=== PATIENT | male | born 1930 | race Caucasian/White ===

== ENCOUNTER 2016-10-06 16:22 | Inpatient (IN) | payer MEDICARE, BC ==
[~2016-10-06] VITALS: Ht 177.8 cm; Wt 97.5 kg
[2016-10-06] MEDS ORDERED: NITR0.4S14 SL (16:36)
[2016-10-06] MEDS ORDERED: PANT40TA2 PO (16:36)
[2016-10-06] MEDS ORDERED: SERT-155 PO (16:36)
[2016-10-06] MEDS ORDERED: ATOR40TA75 PO (16:36)
[2016-10-06] MEDS ORDERED: IRBE150T12 PO (16:36)
[2016-10-06] MEDS ORDERED: MORPHINE 4 MG/ML 1ML SYRINGE IV ONE (17:45)
--- NOTE | 2016-10-06 17:48 | REP ---
PELVIS AND LEFT HIP: AP view of the pelvis and two views of the left hip are performed. There is a left femoral neck fracture with some foreshortening. No other fracture or dislocation is seen. IMPRESSION: Left femoral neck fracture. Signed by Meng Pereyra MD 10/07/2016 10:50 A
[2016-10-06 17:49] LABS: BASO # 0.1 K/mm3 (0.0-0.2); EOS # 0.3 K/mm3 (0.0-0.50); EOS % 2.7 % (0.0-3.0); LARGE UNSTAINED CELL # 0.2 K/mm3 (0.0-0.4); LARGE UNSTAINED CELL % 1.7 % (0.0-4.0); LYMPH # 2.1 K/mm3 (1.5-4.5); LYMPH % 20.3 % (24.0-44.0); MEAN CORPUSCULAR HEMOGLOBIN 32.8 pg (27.0-33.0); MEAN CORPUSCULAR HGB CONC 34.4 g/dl (32.0-36.5); MEAN CORPUSCULAR VOLUME 95.3 fl (80.0-96.0); MONO # 0.6 K/mm3 (0.0-0.8); MONO % 6.2 % (0.0-5.0); NEUTROPHILS # 6.6 K/mm3 (1.8-7.7); NEUTROPHILS % 68.1 % (36.0-66.0); PLATELET COUNT, AUTOMATED 226 k/mm3 (150-450); RED CELL DISTRIBUTION WIDTH 12.8 % (11.5-14.5); WHITE BLOOD COUNT 9.7 K/mm3 (4.0-10.0)
--- NOTE | 2016-10-06 17:49 | REP ---
LEFT FEMUR: AP and lateral views of the left femur are performed. There is a left femoral neck fracture. Total knee prosthesis is seen. No other fracture or dislocation is seen. IMPRESSION: Left femoral neck fracture. Signed by Meng Pereyra MD 10/07/2016 10:50 A
--- NOTE | 2016-10-06 17:50 | REP ---
CHEST: AP, supine, and frontal view of the chest was performed and compared to prior study of 11/25/2010. There is no acute infiltrate. Mild left basilar fibro atelectasis is seen. The heart is not significantly enlarged. There is calcification of the thoracic aorta. There are degenerative changes of the spine. IMPRESSION: No acute infiltrate. Signed by Meng Pereyra MD 10/07/2016 10:50 A
[2016-10-06 18:00] LABS: INR 1.07
[2016-10-06] MEDS ORDERED: CO Q100C PO (18:06)
[2016-10-06] MEDS ORDERED: GLUCTAB6 PO (18:06)
[2016-10-06] MEDS ORDERED: ASPI1TAB PO (18:06)
[2016-10-06] MEDS ORDERED: OCUVTAB PO (18:06)
[2016-10-06 18:07] LABS: ANION GAP 7 MEQ/L (8-16); BLOOD UREA NITROGEN 21 MG/DL (7-18); CALCIUM LEVEL 9.3 MG/DL (8.8-10.2); CARBON DIOXIDE LEVEL 25 MEQ/L (21-32); CHLORIDE LEVEL 106 MEQ/L (98-107); CREATININE FOR GFR 0.96 MG/DL (0.70-1.30); GLOMERULAR FILTRATION RATE > 60.0 (>35); GLUCOSE, FASTING 95 MG/DL (83-110); POTASSIUM SERUM 4.2 MEQ/L (3.5-5.1); SODIUM LEVEL 138 MEQ/L (136-145)
[2016-10-06] MEDS: NS 1,000 ML IV SCH ×2 (18:11→22:22)
[2016-10-06] MEDS ORDERED: NITROGLYCERIN 0.4 MG SUBL TABLET SL PRN (19:00)
[2016-10-06] MEDS ORDERED: PLAV1TAB2 PO (19:02)
[2016-10-06] MEDS ORDERED: MORPHINE 2 MG/ML 1ML SYRINGE IV PRN ×2 (19:30)
[2016-10-06] MEDS ORDERED: PERCOCET 5MG/325MG TAB PO PRN (19:30)
[2016-10-06] MEDS ORDERED: MORPHINE 4 MG/ML 1ML SYRINGE IV PRN (20:00)
[2016-10-06] MEDS ORDERED: ONDANSETRON 4MG/2ML VIAL (J2405) IV ONE (20:00)
[2016-10-06 20:40] VITALS: BP 124/60
[2016-10-06] MEDS ORDERED: ATORVASTATIN 20 MG TAB PO SCH (21:00)
--- NOTE | 2016-10-06 21:20 | HPE ---
DATE OF ADMISSION: 10/06/2016 PRIMARY CARE PHYSICIAN: Dr. Rosales CLAIM BENEFIT SPECIALIST: Dr. Cunningham CHIEF COMPLAINT: Fall. HISTORY OF PRESENT ILLNESS: The patient is a 86-year-old man who has been in the usual state of his health. He has a history of frequent falls. He reportedly was leaving a diner, where he was eating with son, where he had a witnessed fall. Patient denies any prodromal symptoms. No chest pain, shortness of breath, lightheadedness, dizziness, nausea, vomiting. He has not been sick at all recently. He states that he misstepped while stepping down from the curb. He attempted to break his fall by grabbing into the front of a car but instead landed on his left side. His son, who witnessed fall, was immediately next to him. The patient did not lose consciousness; however, he could not bear weight on his left secondary to significant pain. The patient otherwise has a 14 pack-year tobacco history. He has known coronary disease and has had three separate heart attacks with stents placed in the past, hypertension, dyslipidemia. He normally works out at [employer] for 20 minutes every morning without any symptoms of chest pressure or shortness of breath. He tells me that he recently had a stress test from Dr. Cunningham 6 months ago and was told everything was fine and that he did not need to be seen for another time. At the present time the patient complains of pain in his left hip but otherwise is in no distress and otherwise complains of no other issues. PAST MEDICAL HISTORY: 1. Coronary artery disease. 2. Hypertension. 3. Dyslipidemia. 4. Gastroesophageal reflux disease. 5. Anxiety and depression. HOME MEDICATIONS: - aspirin 81 mg daily - atorvastatin 40 mg at bedtime - irbesartan 150 mg daily - multivitamin one tablet daily - nitroglycerine 0.4 mg sublingually every 5 minutes as needed for chest pain - pantoprazole 40 mg daily - sertraline 50 mg daily ALLERGIES: ATORVASTATIN, BETA ANTOINE, NAPROXEN. SOCIAL HISTORY: A 14 pack-year history in the distant past. No alcohol. He is and lives alone. Has a very involved daughter who accompanied him to appointments, and his son as well, who are both present at the bedside in the emergency room. He is full code. PAST SURGICAL HISTORY: 1. Coronary stent placement times three. 2. Bilateral inguinal hernia repair. 3. Colonoscopies. FAMILY HISTORY: Noncontributory. REVIEW OF SYSTEMS: Negative other than history of present illness (HPI). PHYSICAL EXAMINATION: Temperature 96, pulse 65, respiratory rate 20, blood pressure (BP) 167/73, oxygen saturation 95% on room air. GENERAL: He is a very pleasant, elderly man lying flat in bed. He does not appear to be in any acute distress. HEENT: Cranial nerves II-XII are grossly intact. He is wearing bifocal lenses. He has moist mucous membranes. No elevation in central venous pressure (CVP). CARDIOVASCULAR: S1, S2, regular. RESPIRATORY: Clear. ABDOMEN: Obese. Bowel sounds present. The abdomen is soft. EXTREMITIES: No clubbing, cyanosis, or edema. Decreased range of motion of the left lower extremity secondary to pain. LABORATORY STUDIES: WBC 9.7, hemoglobin 14.8 platelet count 226. Chemistry panel: Sodium 138, potassium 4.2, chloride 106, bicarbonate 25, BUN 21 , creatinine 0.9. INR 1.0. IMAGING: The patient did have a hip and pelvis x-ray, which revealed left femoral neck fracture. He had a femur x-ray that revealed left femoral neck fracture. He had a chest x-ray which revealed no acute infiltrate. ASSESSMENT AND PLAN: This is an 86-year-old man status post mechanical fall with left femoral neck fracture. 1. Left femoral neck fracture. of orthopedic surgery has been contacted by the emergency room (ER). I have also called and left him a message as well and placed a consult in the computer. I hope to hear back from him in the near future. In meantime, the patient will be kept nothing by mouth with pain medication, place a Woods catheter. Will hold his aspirin. Hold off on deep vein thrombosis (DVT) prophylaxis until a decision is made about his operative repair. EKG has been completed. It reveals right bundle branch block. Unfortunately, I do not have any old to compare it to; however, given his cardiac history, this is not surprising. Given his cardiac history, advanced, hypertension, dyslipidemia, he is really at moderate risk for perioperative complications; however, he has metabolic equivalents (METS) greater than 4 easily and is okay to proceed to operative repair without any further testing. 2. Dyslipidemia. Continue with statin. 3. Coronary artery disease. We are holding his aspirin. Continue with statin. He adverse reaction to beta antoine. 4. Gastroesophageal reflux disease. Continue with Protonix. 5. Anxiety and depression. Continue with sertraline. 6. Hypertension. Continue with Cozaar. DISPOSITION: The patient is admitted to the medical/surgical floor with plan for operative repair, following which he would likely benefit from physical therapy (PT). Orthopedic surgery's help is greatly appreciated. CHERYL
--- NOTE | 2016-10-06 22:06 | ECGEPIP ---
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
[2016-10-06] MEDS: PERCOCET 5MG/325MG TAB PO PRN (22:22)
--- NOTE | 2016-10-06 22:44 | CR ---
DATE OF CONSULTATION: 10/06/2016 CHIEF COMPLAINT: Left hip pain and deformity. HISTORY OF PRESENT ILLNESS: The patient was walking this afternoon with his son and fell onto his left side injuring his left hip, presented promptly to the emergency room complaining of pain isolated to the left hip joint. No loss of consciousness. No other complaints. He states that he has recently had more trouble with dizziness and feels this contributed to his fall. PAST MEDICAL HISTORY: Significant for a significant coronary artery disease with myocardial infarction and multiple stents. PAST SURGICAL HISTORY: Left total knee arthroplasty, cataracts, hernia with mesh repair followed by mesh removal. 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 MEDICATIONS: - He currently takes baby aspirin daily, 81 mg daily. - Lipitor 40 mg - irbesartan 150 mg - pantoprazole 40 mg - sertraline 50 mg - CoQ-10 100 two tablets daily - Nitrostat 0.4 mg sublingual as needed for chest pain - PreserVision 4 tablets total daily - multivitamin fiber supplement - glucosamine chondroitin ALLERGIES: The patient is currently denying any drug allergies, but per the medical record, does have documented history of allergy to BETA BLOCKERS and NAPROXEN and ATORVASTATIN. SOCIAL HISTORY: He is a former smoker, otherwise negative. REVIEW OF SYSTEMS: As above for the dizziness, otherwise no chest pain, shortness of breath. No fever, chills, nausea, or vomiting. No diarrhea or constipation. PHYSICAL EXAMINATION: Awake, alert and oriented times three. A well-appearing male. No acute distress. HEAD: Normocephalic, atraumatic. Extraocular muscles are intact. CARDIOVASCULAR: Regular rate and rhythm. PULMONARY: No increased work of breathing. ABDOMEN: Soft, nontender, nondistended. FOCUSED EXAMINATION OF THE LEFT LOWER EXTREMITY: There is swelling and low grade deformity about the left hip joint. The skin is intact. There is some small possibly well-healed scars consistent with the left previous left hip surgery versus normal variant. I do not see any large surgical scars in the left hip joint area. Distally, he has 2+ dorsalis pedis and posterior tibialis pulses. The toes are pink, warm and well-perfused with sensation intact to light touch. Intact tibialis anterior, extensor and flexor hallucis longus, and the left knee , leg and foot is grossly atraumatic with a normal appearance. The right lower extremity is grossly atraumatic, neurovascularly intact and normal in appearance. He is comfortably moving the bilateral upper extremities and the cervical spine with a full pain-free range of motion. X-rays of the chest show no acute fracture. Left femur x-ray show in part the previous total knee arthroplasty on the left and the left hip x-rays show a femoral neck fracture displaced into varus. 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 ASSESSMENT: A left femoral neck fracture. PLAN: The patient is to be admitted in preoperatively cleared by the hospitalist service. He did just have some coffee shortly before his fall and so the plan will be to schedule him for surgery tomorrow most likely which will be some sort of arthroplasty of his left hip. I will discuss this with the oncoming orthopedic team. I did discuss the risks and benefits of all treatment options with the patient and his family present and ultimately he did sign the surgical consent in my presence for the left hip arthroplasty. All of his questions were answered and he is satisfied with the treatment plan at this time. Edited: tereza 10/14/2016 1603 MTDD
[2016-10-07] MEDS: PERCOCET 5MG/325MG TAB PO PRN ×2 (03:03→09:53)
[2016-10-07 06:00] VITALS: BP 144/80
[2016-10-07 08:08] LABS: MEAN CORPUSCULAR HGB CONC 34.5 g/dl (32.0-36.5); MEAN CORPUSCULAR VOLUME 95.6 fl (80.0-96.0); RED CELL DISTRIBUTION WIDTH 12.7 % (11.5-14.5); WHITE BLOOD COUNT 8.8 K/mm3 (4.0-10.0)
[2016-10-07 08:46] LABS: ANION GAP 7 MEQ/L (8-16); BLOOD UREA NITROGEN 18 MG/DL (7-18); CALCIUM LEVEL 8.3 MG/DL (8.8-10.2); CARBON DIOXIDE LEVEL 21 MEQ/L (21-32); CHLORIDE LEVEL 110 MEQ/L (98-107); CREATININE FOR GFR 0.75 MG/DL (0.70-1.30); GLOMERULAR FILTRATION RATE > 60.0 (>35); GLUCOSE, FASTING 89 MG/DL (83-110); POTASSIUM SERUM 3.8 MEQ/L (3.5-5.1); SODIUM LEVEL 138 MEQ/L (136-145)
[2016-10-07] MEDS ORDERED: PANTOPRAZOLE 40MG TAB (PROTONIX) PO SCH (09:00)
[2016-10-07] MEDS ORDERED: OCUVITE 1 TAB PO SCH (09:00)
[2016-10-07] MEDS ORDERED: SERTRALINE HCL 50 MG TAB PO SCH (09:00)
[2016-10-07] MEDS ORDERED: IRBESARTAN 150 MG TAB PO SCH (09:00)
[2016-10-07] MEDS: NS 1,000 ML IV SCH ×2 (11:13→13:42)
[2016-10-07] MEDS ORDERED: ceFAZolin 1GM INJ (J0690) As Ordered ONE (13:18)
[2016-10-07] MEDS ORDERED: EPINEPHrine INJ 1 MG/ML 1ML AMP As Ordered ONE ×2 (13:56→14:07)
[2016-10-07] MEDS ORDERED: fentaNYL 100 MCG/2 ML INJECTION (J3010) As Ordered ONE (14:28)
[2016-10-07] MEDS ORDERED: KETAMINE HCL 200 MG/20 ML VIAL As Ordered ONE (14:44)
--- NOTE | 2016-10-07 14:51 | IPN ---
DATE: 10/07/2016 The patient is seen and examined. He has the left femoral neck fracture that is displaced. He fell yesterday and sustained a left hip fracture. No other injury noted. The patient is seen and examined and wishes to go ahead with a left hip hemiarthroplasty to try to get him back ambulating, etc. He has family understand the nature of this, the risks of bleeding, infection, damage to nerves, vessels, persistent pain, wear loosening, dislocation, leg length inequality, blood clots, medical problems, among others. Plan on proceeding with a left hip hemiarthroplasty.
--- NOTE | 2016-10-07 15:17 | IPNPDOC ---
Subjective Date Seen The patient was seen on 10/07/16. Subjective Chief Complaint/HPI The patient is a 86-year-old male admitted with a reason for visit of Hip Fx. General: Denies: Chills, Night Sweats Constitutional: Denies: Chills, Fever Eyes: Denies: Pain, Vision change ENT: Denies: Head Aches, Ear Pain Skin: Denies: Rash, Lesions Pulmonary: Denies: Dyspnea, Cough Cardiovascular: Denies: Chest Pain, Palpitations Gastrointestinal: Denies: Nausea, Vomiting, Abdominal Pain Genitourinary: Denies: Dysuria, Frequency Hematologic: Denies: Bruising, Bleeding Excessively Musculoskeletal: Reports: Other Symptoms (Left Hip Pain) Objective Physical Examination General Exam: Positive: Alert, Cooperative, Mild Distress (2/2 Left Hip Pain) ENT Exam: Positive: Atraumatic, Mucous membr. moist/pink Neck Exam: Negative: JVD Chest Exam: Positive: Clear to auscultation, Normal air movement Heart Exam: Positive: Rate Normal, Normal S1, Normal S2 Abdomen Exam: Positive: Soft, Negative: Tenderness Extremity Exam: Positive: Other (Left Hip ROM limited 2/2 recent fracture. ) Assessment /Plan Plan/VTE VTE Prophylaxis Ordered?: Yes Plan/Urinary Catheter Reason for insertion/continuin: Perioperative Plan Left femoral neck fracture Patient scheduled for Arthroplasty this afternoon with Ortho Sx Pain Mgmt and DVT prophylaxis as per primary team Coronary artery disease. Continue with statin. ASA on hold 2/2 above Not on BB due to allergy Hypertension Continue with Irbesartan Dyslipidemia Continue statin. Gastroesophageal reflux disease Continue with Protonix. Anxiety and depression Continue with sertraline. DVT Prophylaxis as per primary team VS, I&O, 24H, Rodrigo Vital Signs/I&O Vital Signs Date Time Temp Pulse Resp B/P (MAP) Pulse Ox O2 Delivery O2 Flow Rate FiO2 10/07/16 10:23 16 10/07/16 09:53 Room Air 10/07/16 09:24 146/70 10/07/16 06:00 98.4 66 94 2.0 I&O- Last 24 Hours up to 6 AM 10/07/16 05:59 Intake Total 0 ml Output Total 2400 ml Balance -2400 ml Laboratory Data 24H LABS Laboratory Tests 2 10/06/16 17:29: Prothrombin Time 14.1, Prothromb Time International Ratio 1.07, Activated Partial Thromboplast Time 30.9, Anion Gap 7L, Glomerular Filtration Rate > 60.0 , Blood Urea Nitrogen 21H, Creatinine 0.96, Sodium Level 138, Potassium Level 4.2, Chloride Level 106, Carbon Dioxide Level 25, Calcium Level 9.3 10/06/16 17:30: White Blood Count 9.7, Red Blood Count 4.53, Hemoglobin 14.8, Hematocrit 43.1, Mean Corpuscular Volume 95.3, Mean Corpuscular Hemoglobin 32.8, Mean Corpuscular Hemoglobin Concent 34.4, Red Cell Distribution Width 12.8, Platelet Count 226, Neutrophils (%) (Auto) 68.1H, Lymphocytes (%) (Auto) 20.3L, Monocytes (%) (Auto) 6.2H, Eosinophils (%) (Auto) 2.7, Basophils (%) (Auto) 1.0 , Neutrophils # (Auto) 6.6, Lymphocytes # (Auto) 2.1, Monocytes # (Auto) 0.6, Eosinophils # (Auto) 0.3, Basophils # (Auto) 0.1, Large Unclassified Cells % 1.7 , Large Unclassified Cells # 0.2 10/07/16 07:41: Anion Gap 7L, Glomerular Filtration Rate > 60.0, Blood Urea Nitrogen 18, Creatinine 0.75, Sodium Level 138, Potassium Level 3.8, Chloride Level 110H, Carbon Dioxide Level 21, Calcium Level 8.3L CBC/BMP Laboratory Tests 10/06/16 17:29 Calcium Level 9.3 10/06/16 17:30 Red Blood Count 4.53, Mean Corpuscular Volume 95.3, Mean Corpuscular Hemoglobin 32.8, Mean Corpuscular Hemoglobin Concent 34.4, Red Cell Distribution Width 12.8 , Neutrophils (%) (Auto) 68.1 H, Lymphocytes (%) (Auto) 20.3 L, Monocytes (%) ( Auto) 6.2 H, Eosinophils (%) (Auto) 2.7, Basophils (%) (Auto) 1.0, Neutrophils # (Auto) 6.6, Lymphocytes # (Auto) 2.1, Monocytes # (Auto) 0.6, Eosinophils # ( Auto) 0.3, Basophils # (Auto) 0.1 10/07/16 07:41 Calcium Level 8.3 L, Red Blood Count 4.30, Mean Corpuscular Volume 95.6, Mean Corpuscular Hemoglobin 33.0, Mean Corpuscular Hemoglobin Concent 34.5, Red Cell Distribution Width 12.7 MITESH SWIFT MD Oct 07, 2016 15:17
[2016-10-07] MEDS ORDERED: LIDOCAINE 2% INJ 100 MG/5 ML SDV (FOR ANES.) As Ordered ONE (15:28)
[2016-10-07] MEDS ORDERED: PROPOFOL 200 MG/20 ML VIAL As Ordered ONE (15:28)
[2016-10-07] MEDS ORDERED: LABETALOL HCL 100 MG/20 ML VIAL As Ordered ONE (16:39)
[2016-10-07] MEDS ORDERED: WARFARIN SOD 5 MG TAB PO SCH (17:00)
[2016-10-07] MEDS ORDERED: ONDANSETRON 4MG/2ML VIAL (J2405) As Ordered ONE (17:03)
[2016-10-07] MEDS ORDERED: METOCLOPRAMIDE INJ 10MG/2ML VIAL (J2765) As Ordered ONE (17:24)
[2016-10-07] MEDS ORDERED: LR 1,000 ML IV SCH ×2 (17:30→17:45)
[2016-10-07] MEDS ORDERED: HYDROmorphone HCL 1 MG/ML SYRINGE (J1170) IV PRN (17:30)
[2016-10-07] MEDS ORDERED: ONDANSETRON 4MG/2ML VIAL (J2405) IV PRN ×2 (17:30→17:45)
[2016-10-07] MEDS ORDERED: fentaNYL 100 MCG/2 ML INJECTION (J3010) IV PRN (17:30)
[2016-10-07] MEDS ORDERED: PERCOCET 5MG/325MG TAB PO PRN (17:30)
[2016-10-07] MEDS ORDERED: METOCLOPRAMIDE INJ 10MG/2ML VIAL (J2765) IV PRN (17:30)
[2016-10-07] MEDS ORDERED: MORPHINE 2 MG/ML 1ML SYRINGE IV PRN (17:45)
[2016-10-07] MEDS ORDERED: FLEET ENEMA PR PRN (17:45)
[2016-10-07] MEDS ORDERED: HALOPERIDOL 5 MG/ML VIAL (J1630) IV PRN (17:45)
[2016-10-07] MEDS ORDERED: MORPHINE 4 MG/ML 1ML SYRINGE IV PRN (17:45)
[2016-10-07] MEDS ORDERED: NORCO, ANEXSIA 5/325MG TABLET (HYDROcodone/ACETAMINOPHEN) PO SCH (18:00)
[2016-10-07 18:31] VITALS: BP 160/80
[2016-10-07 19:00] VITALS: BP 170/82
[2016-10-07 20:00] VITALS: BP 158/84
[2016-10-07] MEDS: ATORVASTATIN 20 MG TAB PO SCH (20:48)
[2016-10-07 21:00] VITALS: BP 162/86
[2016-10-07 22:00] VITALS: BP 172/88
[2016-10-07] MEDS: NORCO, ANEXSIA 5/325MG TABLET (HYDROcodone/ACETAMINOPHEN) PO PRN (22:16)
[2016-10-08 02:00] VITALS: BP 125/77
[2016-10-08] MEDS: ACETAMINOPHEN TAB 650MG DOSE (2X325MG) PO PRN (02:13)
[2016-10-08] MEDS: NORCO, ANEXSIA 5/325MG TABLET (HYDROcodone/ACETAMINOPHEN) PO PRN ×2 (04:36→15:52)
[2016-10-08 06:00] VITALS: BP 138/80
[2016-10-08] MEDS ORDERED: NORCO, ANEXSIA 5/325MG TABLET (HYDROcodone/ACETAMINOPHEN) PO PRN (07:00)
[2016-10-08 07:13] LABS: MEAN CORPUSCULAR HEMOGLOBIN 33.2 pg (27.0-33.0); MEAN CORPUSCULAR HGB CONC 34.8 g/dl (32.0-36.5); MEAN CORPUSCULAR VOLUME 95.3 fl (80.0-96.0); RED CELL DISTRIBUTION WIDTH 12.7 % (11.5-14.5); WHITE BLOOD COUNT 9.9 K/mm3 (4.0-10.0)
[2016-10-08 07:18] LABS: INR 1.4
[2016-10-08 07:29] LABS: ANION GAP 8 MEQ/L (8-16); BLOOD UREA NITROGEN 19 MG/DL (7-18); CALCIUM LEVEL 8.1 MG/DL (8.8-10.2); CARBON DIOXIDE LEVEL 23 MEQ/L (21-32); CHLORIDE LEVEL 105 MEQ/L (98-107); CREATININE FOR GFR 0.78 MG/DL (0.70-1.30); GLOMERULAR FILTRATION RATE > 60.0 (>35); GLUCOSE, FASTING 144 MG/DL (83-110); POTASSIUM SERUM 3.7 MEQ/L (3.5-5.1); SODIUM LEVEL 136 MEQ/L (136-145)
[2016-10-08] MEDS: MOM 30ML SUSPENSION UDC PO SCH (08:36)
[2016-10-08] MEDS: MIRALAX *UNIT DOSE* 17GM PACKET PO SCH (08:36)
[2016-10-08] MEDS: OCUVITE 1 TAB PO SCH (08:37)
[2016-10-08] MEDS: SERTRALINE HCL 50 MG TAB PO SCH (08:38)
[2016-10-08] MEDS: SENOKOT S TAB PO SCH ×2 (08:38→20:53)
[2016-10-08] MEDS: PANTOPRAZOLE 40MG TAB (PROTONIX) PO SCH (08:38)
[2016-10-08] MEDS: IRBESARTAN 150 MG TAB PO SCH (08:38)
[2016-10-08] MEDS ORDERED: NITROGLYCERIN 0.4 MG SUBL TABLET SL PRN (09:00)
[2016-10-08] MEDS ORDERED: MAALOX 30 ML SUSP *UDC PO PRN (09:00)
[2016-10-08] MEDS ORDERED: SIMETHICONE 80 MG CHEW TAB PO PRN (11:15)
--- NOTE | 2016-10-08 11:35 | IPNPDOC ---
Subjective Date Seen The patient was seen on 10/08/16. Subjective Chief Complaint/HPI Patient seen and examined at the bedside. States that he is feeling well this morning, and that his pain is controlled following surgery yesterday. Objective Physical Examination General Exam: Positive: Alert, Cooperative, No Acute Distress ENT Exam: Positive: Atraumatic, Mucous membr. moist/pink Neck Exam: Negative: JVD Chest Exam: Positive: Clear to auscultation, Normal air movement Heart Exam: Positive: Rate Normal, Normal S1, Normal S2 Abdomen Exam: Positive: Soft, Negative: Tenderness Extremity Exam: Positive: Other (Left Hip noted to be wrapped in surgical dressing, ROM of the joint limited 2/2 recent fracture. Neurovascularly intact distally.) Assessment /Plan Plan/VTE VTE Prophylaxis Ordered?: Yes Plan/Urinary Catheter Reason for insertion/continuin: Perioperative Plan Left femoral neck fracture s/p Hemiarthroplasty on 10/07 Pain Mgmt and DVT prophylaxis as per primary team Coronary artery disease. Continue with statin. ASA on hold 2/2 above Not on BB due to allergy Hypertension Continue with Irbesartan Dyslipidemia Continue statin. Gastroesophageal reflux disease Continue with Protonix. Anxiety and depression Continue with sertraline. Urinary Retention Patient on Flomax DVT Prophylaxis as per primary team VS, I&O, 24H, Fishbone Vital Signs/I&O Vital Signs Date Time Temp Pulse Resp B/P (MAP) Pulse Ox O2 Delivery O2 Flow Rate FiO2 10/08/16 09:10 18 10/08/16 08:38 138/80 10/08/16 06:24 Room Air 10/08/16 06:00 99.4 79 95 2.0 I&O- Last 24 Hours up to 6 AM 10/08/16 06:00 Intake Total 1280 ml Output Total 1750 ml Balance -470 ml Laboratory Data 24H LABS Laboratory Tests 2 10/08/16 06:54: Prothrombin Time 17.5H, Prothromb Time International Ratio 1.40, Anion Gap 8, Glomerular Filtration Rate > 60.0, Blood Urea Nitrogen 19H, Creatinine 0.78, Sodium Level 136, Potassium Level 3.7, Chloride Level 105, Carbon Dioxide Level 23, Calcium Level 8.1L CBC/BMP Laboratory Tests 10/08/16 06:54 Red Blood Count 3.82 L, Mean Corpuscular Volume 95.3, Mean Corpuscular Hemoglobin 33.2 H, Mean Corpuscular Hemoglobin Concent 34.8, Red Cell Distribution Width 12.7, Calcium Level 8.1 L MITESH SWIFT MD Oct 08, 2016 11:35
--- NOTE | 2016-10-08 13:53 | RO ---
DATE OF PROCEDURE: 10/07/2016 PREOPERATIVE DIAGNOSIS: Left hip femoral neck fracture. POSTOPERATIVE DIAGNOSIS: Left hip femoral neck fracture. PROCEDURE: Left hip hemiarthroplasty using a 51 ball, +5 neck and a size 3 cemented Shannon stem. SURGEON: Dr. Amauri Grullon GIFT WRAPPER: Mook Fernandez MD ANESTHESIA: Spinal. ESTIMATED BLOOD LOSS: 200. COMPLICATIONS: None. INDICATIONS: This is an 86-year-old gentleman who fell yesterday injuring his left hip. He had a displaced femoral neck fracture that we felt was appropriate for hemiarthroplasty. He and his family wished to go ahead with this and understood the nature of this and the risks of bleeding, infection, damage to nerves, vessels, persistent pain, wear, loosening, dislocation, leg length inequality, blood clots, medical problems, , among others. PROCEDURE: The patient was taken to the operating room and placed in the right lateral decubitus position after the spinal anesthesia was induced. The left hip was prepped and draped in the usual sterile fashion. A time-out was performed. We then created a longitudinal incision over the lateral aspect of the hip. Sharp dissection was carried down through the subcutaneous tissue until the fascia kevin was encountered. This was incised longitudinally with the cautery. We then exposed the abductors and divided the anterior 40% of the abductor off of the femur as we gradually externally rotated the femur. We dissected down along the femoral neck and released the labrum. As we carefully dissected around the neck down to the lesser trochanter, we gradually externally rotated the femur. Then used the canal initiating reamer to initiate the hole in the proximal femur, followed by the canal finding reamer and the lateralizing reamer. Then used a trial broach to make a neck cut and used the trial broach as a template. This was done about a half a fingerbreadth up from lesser trochanter. The femoral head was then removed with a corkscrew and measured to be a 51. We then began broaching and started with a size 2. We were able to get up to a size 3, which had an excellent fit and fill without impacting it very hard to avoid the risk of fracture. Once the broach was in place, we then we did some trial reductions with a -3, the 0, and the +5 neck and the 51 ball and were very pleased with the soft tissue tension and stability of the +5 ball. We put the hip in full extension. There was minimal shuck. It was very stable in extension and external rotation and flexion and internal rotation. Soft tissue tension was appropriate. We then removed the trial components and took the actual implants on the field. We prepared the canal. We placed the cement restrictor size 3 down the canal at an appropriate distance so it would be just beyond the stem. We put the size 3 stem on with the cementralizer on the field and the 51, +5 neck. The canal was then irrigated and brushed. An epinephrine soaked vaginal pack was placed followed by dry sponges. An press assistant prepared the bone cement in the modern technique on the back table. Once the canal was dry, we retrograde filled the canal with cement and placed the stem down and placed it in the anteversion that matched the actual femur. Care was taken not to place it in varus. Once the cement had hardened, we then impacted on the head and neck. Excellent solid fit was noted. Then we reduced the hip and put the hip through a range of motion. Again, very pleased with stability of the hip. Soft tissue tension was appropriate. Copious irrigation had been performed multiple times. We made sure there was nothing in the acetabulum prior to reduction and then we repaired the minimus with #1 Vicryl suture, the abductor with #1 Vicryl suture. Soft tissue planes were relatively indistinct and somewhat fatty, but we got a good closure. We then repaired the fascia kevin with #1 Vicryl suture and then interrupted Stratafix running suture in each direction that the press assistant and I placed. Again irrigated and closed the subcutaneous with #2-0 Vicryl and the skin with fannie. Sterile dressing was applied. The patient was taken to recovery in stable condition. There were no known complications. The plan will be routine postop. This procedure was done as a team and both of us participated throughout the procedure and exposure, preparing the canal, and trial reductions, etc., so both surgeons were instrumental in the completion of the surgery. We also both assisted in wound closure and in decision making as far as the prosthetic components.
[2016-10-08 14:00] VITALS: BP 122/58
[2016-10-08] MEDS ORDERED: WARFARIN SOD 5 MG TAB PO ONE (17:00)
[2016-10-08] MEDS: TAMSULOSIN 0.4 MG CAP PO SCH (20:53)
[2016-10-08] MEDS: ATORVASTATIN 20 MG TAB PO SCH (20:53)
[2016-10-08] MEDS: traMADol 50 MG TAB PO PRN (20:54)
[2016-10-08 22:00] VITALS: BP 144/76
[2016-10-09] MEDS: traMADol 50 MG TAB PO PRN (04:59)
[2016-10-09 05:36] LABS: MEAN CORPUSCULAR HEMOGLOBIN 33.3 pg (27.0-33.0); MEAN CORPUSCULAR VOLUME 95.4 fl (80.0-96.0); RED CELL DISTRIBUTION WIDTH 12.9 % (11.5-14.5); WHITE BLOOD COUNT 9.8 K/mm3 (4.0-10.0)
[2016-10-09 05:41] LABS: INR 2.48
[2016-10-09 05:46] LABS: ANION GAP 7 MEQ/L (8-16); BLOOD UREA NITROGEN 18 MG/DL (7-18); CALCIUM LEVEL 8.5 MG/DL (8.8-10.2); CARBON DIOXIDE LEVEL 25 MEQ/L (21-32); CHLORIDE LEVEL 104 MEQ/L (98-107); CREATININE FOR GFR 0.73 MG/DL (0.70-1.30); GLOMERULAR FILTRATION RATE > 60.0 (>35); GLUCOSE, FASTING 126 MG/DL (83-110); POTASSIUM SERUM 3.6 MEQ/L (3.5-5.1); SODIUM LEVEL 136 MEQ/L (136-145)
[2016-10-09 06:00] VITALS: BP 132/68
[2016-10-09] MEDS: SENOKOT S TAB PO SCH ×2 (08:50→20:31)
[2016-10-09] MEDS: MOM 30ML SUSPENSION UDC PO SCH (08:50)
[2016-10-09] MEDS: MIRALAX *UNIT DOSE* 17GM PACKET PO SCH (08:50)
[2016-10-09] MEDS: OCUVITE 1 TAB PO SCH (08:50)
[2016-10-09] MEDS: SERTRALINE HCL 50 MG TAB PO SCH (08:50)
[2016-10-09] MEDS: IRBESARTAN 150 MG TAB PO SCH (08:50)
[2016-10-09] MEDS: ACETAMINOPHEN TAB 650MG DOSE (2X325MG) PO PRN ×3 (08:51→20:31)
[2016-10-09] MEDS: PANTOPRAZOLE 40MG TAB (PROTONIX) PO SCH (08:51)
--- NOTE | 2016-10-09 11:20 | IPNPDOC ---
Subjective Date Seen The patient was seen on 10/09/16. Subjective Chief Complaint/HPI Patient seen and examined at the bedside. He appears somewhat confused but remains pleasant. He states that he is feeling well and notes that his pain is well controlled. Denies any other acute complaints at this time. Objective Physical Examination General Exam: Positive: Alert, Cooperative, No Acute Distress ENT Exam: Positive: Atraumatic, Mucous membr. moist/pink Neck Exam: Negative: JVD Chest Exam: Positive: Clear to auscultation, Normal air movement Heart Exam: Positive: Rate Normal, Normal S1, Normal S2 Abdomen Exam: Positive: Soft, Negative: Tenderness Extremity Exam: Positive: Other (Left Hip noted to be wrapped in surgical dressing, ROM of the joint limited 2/2 recent fracture. Neurovascularly intact distally.) Assessment /Plan Plan/VTE VTE Prophylaxis Ordered?: Yes Plan/Urinary Catheter Reason for insertion/continuin: Perioperative Plan Left femoral neck fracture s/p Hemiarthroplasty on 10/07 Pain Mgmt and DVT prophylaxis as per primary team Coronary artery disease. Continue with statin. ASA on hold 2/2 above Not on BB due to allergy Hypertension Continue with Irbesartan Dyslipidemia Continue statin. Gastroesophageal reflux disease Continue with Protonix. Anxiety and depression Continue with sertraline. Urinary Retention Patient on Flomax DVT Prophylaxis as per primary team VS, I&O, 24H, [facility] Vital Signs/I&O Vital Signs Date Time Temp Pulse Resp B/P (MAP) Pulse Ox O2 Delivery O2 Flow Rate FiO2 10/09/16 08:50 132/68 10/09/16 06:00 98.7 91 18 90 Room Air 10/08/16 06:00 2.0 I&O- Last 24 Hours up to 6 AM 10/09/16 06:00 Intake Total 2060 ml Output Total 400 ml Balance 1660 ml Laboratory Data 24H LABS Laboratory Tests 2 10/09/16 05:18: Prothrombin Time 27.8H, Prothromb Time International Ratio 2.48, Anion Gap 7L, Glomerular Filtration Rate > 60.0, Blood Urea Nitrogen 18, Creatinine 0.73, Sodium Level 136, Potassium Level 3.6, Chloride Level 104, Carbon Dioxide Level 25, Calcium Level 8.5L CBC/BMP Laboratory Tests 10/09/16 05:18 Red Blood Count 3.53 L, Mean Corpuscular Volume 95.4, Mean Corpuscular Hemoglobin 33.3 H, Mean Corpuscular Hemoglobin Concent 35.0, Red Cell Distribution Width 12.9, Calcium Level 8.5 L MITESH SWIFT MD Oct 09, 2016 11:20
[2016-10-09 14:00] VITALS: BP 140/80
[2016-10-09] MEDS: TAMSULOSIN 0.4 MG CAP PO SCH (20:30)
[2016-10-09] MEDS: ATORVASTATIN 20 MG TAB PO SCH (20:31)
[2016-10-09 22:00] VITALS: BP 150/80
[2016-10-10 06:00] VITALS: BP 145/64
[2016-10-10 06:26] LABS: MEAN CORPUSCULAR HEMOGLOBIN 32.9 pg (27.0-33.0); MEAN CORPUSCULAR HGB CONC 34.3 g/dl (32.0-36.5); MEAN CORPUSCULAR VOLUME 95.9 fl (80.0-96.0); RED CELL DISTRIBUTION WIDTH 12.6 % (11.5-14.5); WHITE BLOOD COUNT 10.1 K/mm3 (4.0-10.0)
[2016-10-10 06:33] LABS: INR 2.63
[2016-10-10 06:43] LABS: ANION GAP 8 MEQ/L (8-16); BLOOD UREA NITROGEN 21 MG/DL (7-18); CALCIUM LEVEL 8.1 MG/DL (8.8-10.2); CARBON DIOXIDE LEVEL 26 MEQ/L (21-32); CHLORIDE LEVEL 106 MEQ/L (98-107); CREATININE FOR GFR 0.73 MG/DL (0.70-1.30); GLOMERULAR FILTRATION RATE > 60.0 (>35); GLUCOSE, FASTING 112 MG/DL (83-110); POTASSIUM SERUM 3.6 MEQ/L (3.5-5.1); SODIUM LEVEL 140 MEQ/L (136-145)
[2016-10-10] MEDS: SERTRALINE HCL 50 MG TAB PO SCH (08:49)
[2016-10-10] MEDS: MIRALAX *UNIT DOSE* 17GM PACKET PO SCH ×2 (08:49→09:00)
[2016-10-10] MEDS: MOM 30ML SUSPENSION UDC PO SCH ×2 (08:49→09:00)
[2016-10-10] MEDS: PANTOPRAZOLE 40MG TAB (PROTONIX) PO SCH (08:50)
[2016-10-10] MEDS: OCUVITE 1 TAB PO SCH (08:50)
[2016-10-10] MEDS: SENOKOT S TAB PO SCH ×2 (08:51→20:36)
[2016-10-10] MEDS: IRBESARTAN 150 MG TAB PO SCH (08:51)
[2016-10-10] MEDS: traMADol 50 MG TAB PO PRN (08:51)
--- NOTE | 2016-10-10 11:24 | IPNPDOC ---
Subjective Date Seen The patient was seen on 10/10/16. Subjective Chief Complaint/HPI Patient seen and examined at the bedside. Appears more confused today, nursing staff notes that he was having some hallucinations overnight. Appears in no acute distress. Objective Physical Examination General Exam: Positive: No Acute Distress ENT Exam: Positive: Atraumatic, Mucous membr. moist/pink Neck Exam: Negative: JVD Chest Exam: Positive: Clear to auscultation, Normal air movement Heart Exam: Positive: Rate Normal, Normal S1, Normal S2 Abdomen Exam: Positive: Soft, Negative: Tenderness Extremity Exam: Positive: Other (Left Hip noted to be wrapped in surgical dressing, ROM of the joint limited 2/2 recent fracture. Neurovascularly intact distally.) Assessment /Plan Plan/VTE VTE Prophylaxis Ordered?: Yes Plan/Urinary Catheter Reason for insertion/continuin: Perioperative Plan Left femoral neck fracture s/p Hemiarthroplasty on 10/07 Pain Mgmt and DVT prophylaxis as per Ortho Coronary artery disease. Continue with statin. ASA on hold 2/2 above Not on BB due to allergy Hypertension Continue with Irbesartan Dyslipidemia Continue statin. Gastroesophageal reflux disease Continue with Protonix. Anxiety and depression Continue with sertraline. Urinary Retention Patient on Flomax DVT Prophylaxis as per ortho team VS, [facility] Vital Signs/I&O Vital Signs Date Time Temp Pulse Resp B/P (MAP) Pulse Ox O2 Delivery O2 Flow Rate FiO2 10/10/16 08:51 18 10/10/16 08:51 145/64 10/10/16 06:00 99.1 88 94 Room Air 10/08/16 06:00 2.0 I&O- Last 24 Hours up to 6 AM 10/10/16 06:00 Intake Total 600 ml Output Total 610 ml Balance -10 ml Laboratory Data 24H LABS Laboratory Tests 2 10/10/16 06:14: Prothrombin Time 29.2H, Prothromb Time International Ratio 2.63, Anion Gap 8, Glomerular Filtration Rate > 60.0, Blood Urea Nitrogen 21H, Creatinine 0.73, Sodium Level 140, Potassium Level 3.6, Chloride Level 106, Carbon Dioxide Level 26, Calcium Level 8.1L CBC/BMP Laboratory Tests 10/10/16 06:14 Red Blood Count 3.56 L, Mean Corpuscular Volume 95.9, Mean Corpuscular Hemoglobin 32.9, Mean Corpuscular Hemoglobin Concent 34.3, Red Cell Distribution Width 12.6, Calcium Level 8.1 L MITESH SWIFT MD Oct 10, 2016 11:24
[2016-10-10 14:00] VITALS: BP 120/79
[2016-10-10] MEDS: TAMSULOSIN 0.4 MG CAP PO SCH (20:36)
[2016-10-10] MEDS: ATORVASTATIN 20 MG TAB PO SCH (20:36)
[2016-10-10 22:00] VITALS: BP 154/72
[2016-10-11] MEDS: ACETAMINOPHEN TAB 650MG DOSE (2X325MG) PO PRN ×3 (01:25→12:41)
[2016-10-11 06:00] VITALS: BP 145/88
[2016-10-11 06:36] LABS: MEAN CORPUSCULAR HEMOGLOBIN 32.3 pg (27.0-33.0); MEAN CORPUSCULAR HGB CONC 33.6 g/dl (32.0-36.5); MEAN CORPUSCULAR VOLUME 96.1 fl (80.0-96.0); RED CELL DISTRIBUTION WIDTH 12.6 % (11.5-14.5); WHITE BLOOD COUNT 9.3 K/mm3 (4.0-10.0)
[2016-10-11 06:53] LABS: ANION GAP 8 MEQ/L (8-16); BLOOD UREA NITROGEN 26 MG/DL (7-18); CALCIUM LEVEL 8.8 MG/DL (8.8-10.2); CARBON DIOXIDE LEVEL 27 MEQ/L (21-32); CHLORIDE LEVEL 106 MEQ/L (98-107); CREATININE FOR GFR 0.69 MG/DL (0.70-1.30); GLOMERULAR FILTRATION RATE > 60.0 (>35); GLUCOSE, FASTING 109 MG/DL (83-110); POTASSIUM SERUM 3.6 MEQ/L (3.5-5.1); SODIUM LEVEL 141 MEQ/L (136-145)
[2016-10-11] MEDS: OCUVITE 1 TAB PO SCH (08:32)
[2016-10-11] MEDS: SENOKOT S TAB PO SCH ×2 (08:32→20:04)
[2016-10-11] MEDS: IRBESARTAN 150 MG TAB PO SCH (08:32)
[2016-10-11] MEDS: PANTOPRAZOLE 40MG TAB (PROTONIX) PO SCH (08:33)
[2016-10-11] MEDS: MOM 30ML SUSPENSION UDC PO SCH (08:33)
[2016-10-11] MEDS: SERTRALINE HCL 50 MG TAB PO SCH (08:34)
[2016-10-11] MEDS: MIRALAX *UNIT DOSE* 17GM PACKET PO SCH (08:34)
--- NOTE | 2016-10-11 11:56 | REP ---
LEFT HIP SERIES: Two views. HISTORY: Postop. FINDINGS: AP and cross-table lateral views of the left hip demonstrate left femoral head replacement in good position. Lateral skin fannie are seen. Signed by Chin Cabello MD 10/11/2016 04:22 P
[2016-10-11 14:00] VITALS: BP 139/80
--- NOTE | 2016-10-11 14:28 | IPNPDOC ---
Subjective Date Seen The patient was seen on 10/11/16. Subjective Chief Complaint/HPI Patient seen and examined at the bedside. Appears less confused this morning, and is able to converse appropriately with myself and his family at the bedside. Denies any complaints of acute pain at this time. Objective Physical Examination General Exam: Positive: Cooperative, No Acute Distress ENT Exam: Positive: Atraumatic, Mucous membr. moist/pink Neck Exam: Negative: JVD Chest Exam: Positive: Clear to auscultation, Normal air movement Heart Exam: Positive: Rate Normal, Normal S1, Normal S2 Abdomen Exam: Positive: Soft, Negative: Tenderness Extremity Exam: Positive: Other (Left Hip noted to be wrapped in surgical dressing, ROM of the joint limited 2/2 recent fracture. Neurovascularly intact distally.) Assessment /Plan Plan/VTE VTE Prophylaxis Ordered?: Yes Plan/Urinary Catheter Reason for insertion/continuin: Perioperative Plan Left femoral neck fracture s/p Hemiarthroplasty on 10/07 Pain Mgmt and DVT prophylaxis as per Ortho Coronary artery disease. Continue with statin. ASA on hold 2/2 above Not on BB due to allergy Hypertension Continue with Irbesartan Dyslipidemia Continue statin. Gastroesophageal reflux disease Continue with Protonix. Anxiety and depression Continue with sertraline. Urinary Retention Patient on Flomax DVT Prophylaxis as per ortho team Dispo--Awaiting PT eval/PMR screen for possible Acute Rehab vs STR placement. PFS on board. We will follow up with recommendations. VS, I&O, 24H, [facility] Vital Signs/I&O Vital Signs Date Time Temp Pulse Resp B/P (MAP) Pulse Ox O2 Delivery O2 Flow Rate FiO2 10/11/16 10:13 Room Air 10/11/16 08:32 145/88 10/11/16 06:00 98.2 91 18 96 10/08/16 06:00 2.0 I&O- Last 24 Hours up to 6 AM 10/11/16 06:00 Intake Total 1620 ml Output Total 540 ml Balance 1080 ml Laboratory Data 24H LABS Laboratory Tests 2 10/11/16 06:23: Anion Gap 8, Glomerular Filtration Rate > 60.0, Blood Urea Nitrogen 26H, Creatinine 0.69L, Sodium Level 141, Potassium Level 3.6, Chloride Level 106, Carbon Dioxide Level 27, Calcium Level 8.8 CBC/BMP Laboratory Tests 10/11/16 06:23 Red Blood Count 3.74 L, Mean Corpuscular Volume 96.1 H, Mean Corpuscular Hemoglobin 32.3, Mean Corpuscular Hemoglobin Concent 33.6, Red Cell Distribution Width 12.6, Calcium Level 8.8 MITESH SWIFT MD Oct 11, 2016 14:28
[2016-10-11] MEDS: TAMSULOSIN 0.4 MG CAP PO SCH (20:04)
[2016-10-11] MEDS: ATORVASTATIN 20 MG TAB PO SCH (20:04)
[2016-10-11 22:00] VITALS: BP 127/59
[2016-10-12 06:28] LABS: MEAN CORPUSCULAR HEMOGLOBIN 32.8 pg (27.0-33.0); MEAN CORPUSCULAR HGB CONC 34.6 g/dl (32.0-36.5); MEAN CORPUSCULAR VOLUME 94.8 fl (80.0-96.0); RED CELL DISTRIBUTION WIDTH 12.8 % (11.5-14.5); WHITE BLOOD COUNT 8.2 K/mm3 (4.0-10.0)
[2016-10-12 06:42] LABS: ANION GAP 8 MEQ/L (8-16); BLOOD UREA NITROGEN 28 MG/DL (7-18); CALCIUM LEVEL 8.4 MG/DL (8.8-10.2); CARBON DIOXIDE LEVEL 25 MEQ/L (21-32); CHLORIDE LEVEL 107 MEQ/L (98-107); CREATININE FOR GFR 0.66 MG/DL (0.70-1.30); GLOMERULAR FILTRATION RATE > 60.0 (>35); GLUCOSE, FASTING 106 MG/DL (83-110); POTASSIUM SERUM 3.8 MEQ/L (3.5-5.1); SODIUM LEVEL 140 MEQ/L (136-145)
[2016-10-12 08:46] VITALS: BP 145/88
[2016-10-12] MEDS: PANTOPRAZOLE 40MG TAB (PROTONIX) PO SCH (08:46)
[2016-10-12] MEDS: IRBESARTAN 150 MG TAB PO SCH (08:46)
[2016-10-12] MEDS: SERTRALINE HCL 50 MG TAB PO SCH (08:46)
[2016-10-12] MEDS: OCUVITE 1 TAB PO SCH (08:47)
[2016-10-12] MEDS: ACETAMINOPHEN TAB 650MG DOSE (2X325MG) PO PRN (08:48)
[2016-10-12] MEDS: MOM 30ML SUSPENSION UDC PO SCH (08:50)
[2016-10-12] MEDS: SENOKOT S TAB PO SCH (08:50)
[2016-10-12] MEDS: MIRALAX *UNIT DOSE* 17GM PACKET PO SCH (08:50)
--- NOTE | 2016-10-12 09:01 | IPNPDOC ---
Subjective Date Seen The patient was seen on 10/12/16. Subjective Chief Complaint/HPI Patient seen and examined at the bedside. Confusion appears to be improved, patient denies any acute overnight complaints. States that he has been eating and drinking well and is pain free. Objective Physical Examination General Exam: Positive: Alert, Cooperative, No Acute Distress ENT Exam: Positive: Atraumatic, Mucous membr. moist/pink Neck Exam: Negative: JVD Chest Exam: Positive: Clear to auscultation, Normal air movement Heart Exam: Positive: Rate Normal, Normal S1, Normal S2 Abdomen Exam: Positive: Soft, Negative: Tenderness Extremity Exam: Positive: Other (Left Hip noted to be wrapped in surgical dressing, ROM of the joint limited 2/2 recent fracture. Neurovascularly intact distally.) Assessment /Plan Plan/VTE VTE Prophylaxis Ordered?: Yes Plan/Urinary Catheter Reason for insertion/continuin: Perioperative Plan Left femoral neck fracture s/p Hemiarthroplasty on 10/07 Pain Mgmt and DVT prophylaxis as per Ortho Coronary artery disease. Continue with statin. ASA on hold 2/2 above Not on BB due to allergy Hypertension Continue with Irbesartan Dyslipidemia Continue statin. Gastroesophageal reflux disease Continue with Protonix. Anxiety and depression Continue with sertraline. Urinary Retention Patient on Flomax DVT Prophylaxis as per ortho team Dispo--Awaiting PT eval/PMR screen for possible Acute Rehab vs STR placement. PFS on board. We will follow up with recommendations. VS, I&O, 24H, [facility] Vital Signs/I&O Vital Signs Date Time Temp Pulse Resp B/P (MAP) Pulse Ox O2 Delivery O2 Flow Rate FiO2 10/12/16 08:46 145/88 10/11/16 22:00 98.7 90 15 95 Room Air 10/08/16 06:00 2.0 I&O- Last 24 Hours up to 6 AM 10/12/16 06:00 Intake Total 600 ml Output Total 1000 ml Balance -400 ml Laboratory Data 24H LABS Laboratory Tests 2 10/12/16 06:00: Anion Gap 8, Glomerular Filtration Rate > 60.0, Blood Urea Nitrogen 28H, Creatinine 0.66L, Sodium Level 140, Potassium Level 3.8, Chloride Level 107, Carbon Dioxide Level 25, Calcium Level 8.4L CBC/BMP Laboratory Tests 10/12/16 06:00 Red Blood Count 3.43 L, Mean Corpuscular Volume 94.8, Mean Corpuscular Hemoglobin 32.8, Mean Corpuscular Hemoglobin Concent 34.6, Red Cell Distribution Width 12.8, Calcium Level 8.4 L MITESH SWIFT MD Oct 12, 2016 09:01
[2016-10-12] MEDS ORDERED: FLOM5CAP PO (11:35)
--- NOTE | 2016-10-12 11:48 | DS.PDOC ---
Discharge Summary General Date of Admission Oct 06, 2016 at 19:05 Date of Discharge 10/12/16 Specialist/Consultants Involve: Mook Fernandez Discharge Summary PROCEDURES PERFORMED DURING STAY: Left hip hemiarthroplasty ADMITTING DIAGNOSES: 1. . Left femoral neck fracture status post hemiarthroplasty DISCHARGE DIAGNOSES: 1. . Left femoral neck fracture status post hemiarthroplasty COMPLICATIONS/CHIEF COMPLAINT: Hip Fx. HISTORY OF PRESENT ILLNESS: . 86-year-old male with past medical history of CAD, hypertension, dyslipidemia, GERD, anxiety, and depression presented to the ER with a chief complaint of witnessed fall. The patient stated that he misstepped while stepping down from a curb and in an attempt to break his fall he tried to grab onto the front of a car but instead landed on his left side. The patient's son who witnessed the fall stated the patient did not lose any consciousness but was limited secondary to left-sided pain. The patient denied any prodromal symptoms at the time. In the ER, imaging revealed a left-sided femoral neck fracture. The patient was admitted to the hospitalist service with a consult placed to orthopedic surgery for further evaluation and management. During hospitalization, the patient was medically optimized by the hospitalist team for surgery. He subsequently underwent left hip hemiarthroplasty on by Dr. Grullon. Since the surgery, the patient has been doing well medically. His chronic comorbidities have been managed as prescribed. The patient has been working with physical therapy for functional optimization. At this time, the patient will be transferred over to the physical medicine and rehabilitation unit for further functional optimization. The patient states he is feeling well and he is eager to get back to his baseline functional status. He denies any further acute complaints. The patient will be transferred over to the rehabilitation unit for further functional optimization, with instructions to follow-up with his primary care physician within one to 2 weeks. DISCHARGE MEDICATIONS: Please see below. ALLERGIES: Please see below. PHYSICAL EXAMINATION ON DISCHARGE: VITAL SIGNS: Please see below. General Exam: Positive: Alert, Cooperative, No Acute Distress ENT Exam: Positive: Atraumatic, Mucous membr. moist/pink Neck Exam: Negative: JVD Chest Exam: Positive: Clear to auscultation, Normal air movement Heart Exam: Positive: Rate Normal, Normal S1, Normal S2 Abdomen Exam: Positive: Soft, Negative: Tenderness Extremity Exam: Positive: Other (Left Hip noted to be wrapped in surgical dressing, ROM of the joint limited 2/2 recent fracture. Neurovascularly intact distally.) LABORATORY DATA: Please see below. IMAGING: LEFT FEMUR: AP and lateral views of the left femur are performed. There is a left femoral neck fracture. Total knee prosthesis is seen. No other fracture or dislocation is seen. IMPRESSION: Left femoral neck fracture. PROGNOSIS: Medically stable ACTIVITY: As tolerated. DIET: . 2 g low sodium diet DISCHARGE PLAN: DISPOSITION: . Physical medicine and rehabilitation unit DISCHARGE INSTRUCTIONS: 1. . Follow-up with primary care physician within one week 2. . Follow-up with orthopedic surgery as outlined DISCHARGE CONDITION: Stable. TIME SPENT ON DISCHARGE: Greater than 30 minutes. Vital Signs/I&Os Vital Signs Date Time Temp Pulse Resp B/P (MAP) Pulse Ox O2 Delivery O2 Flow Rate FiO2 10/12/16 10:33 Room Air 10/12/16 08:46 145/88 10/11/16 22:00 98.7 90 15 95 10/08/16 06:00 2.0 I&O- Last 24 Hours up to 6 AM 10/12/16 06:00 Intake Total 600 ml Output Total 1000 ml Balance -400 ml Laboratory Data Labs 24H Laboratory Tests 2 10/12/16 06:00: Anion Gap 8, Glomerular Filtration Rate > 60.0, Blood Urea Nitrogen 28H, Creatinine 0.66L, Sodium Level 140, Potassium Level 3.8, Chloride Level 107, Carbon Dioxide Level 25, Calcium Level 8.4L CBC/BMP Laboratory Tests 10/12/16 06:00 Red Blood Count 3.43 L, Mean Corpuscular Volume 94.8, Mean Corpuscular Hemoglobin 32.8, Mean Corpuscular Hemoglobin Concent 34.6, Red Cell Distribution Width 12.8, Calcium Level 8.4 L Discharge Medications Scheduled (Sertraline HCl) 50 Mg Tab, 50 MG PO DAILY, (Reported) (Co Q-10) 100 Mg Cap, 100 MG PO BID, (Reported) (Glucosamine Chondroitin) 1 Tab Tab, 1 TAB PO DAILY, (Reported) Aspirin (Aspirin 81) 81 Mg Tab, 81 MG PO DAILY, (Reported) Atorvastatin Calcium (Atorvastatin Calcium) 40 Mg Tab, 40 MG PO QHS, (Reported) Irbesartan (Irbesartan) 150 Mg Tab, 150 MG PO DAILY, (Reported) Multivitamins (Ocuvite) 1 Tab Tab, 1 TAB PO DAILY, (Reported) Pantoprazole Sodium (Pantoprazole Sodium) 40 Mg Tab, 40 MG PO DAILY, (Reported) Tamsulosin Hydrochloride (Flomax) 0.4 Mg Cap, 0.4 MG PO QHS Scheduled PRN Nitroglycerin (Nitroglycerin) 0.4 Mg Sub, 0.4 MG SL Q5MP PRN for CHEST PAIN, ( Reported) Allergies Coded Allergies: Beta Adrenergic Blockers (Verified Adverse Reaction, Severe, INTOLERANCE PER DR. GAMBOA, 10/06/16) Naproxen (Verified Adverse Reaction, Intermediate, ANXIETY, 10/06/16) MITESH SWIFT MD Oct 12, 2016 11:48
== END 2016-10-12 13:40 | DRG 470 ==
LOC: EDBD 16:22 → M ED 16:22 → M ED INP 19:05 → M MS5PR 20:40
PROVIDERS: ADMIT Internal Medicine; ATTEND Internal Medicine
PROC: 0SRB049 Replacement of Left Hip Joint with Ceramic on Polyethylene Synthetic Substitute, Cemented, Open Approach (ICD-10-PCS; principal; 2016-10-07 15:00)
DX: S72.002A Fracture of unspecified part of neck of left femur, initial encounter for closed fracture (principal); R29.6 Repeated falls; I25.10 Atherosclerotic heart disease of native coronary artery without angina pectoris; I10 Essential (primary) hypertension; E78.5 Hyperlipidemia, unspecified; K21.9 Gastro-esophageal reflux disease without esophagitis; F41.9 Anxiety disorder, unspecified; R41.82 Altered mental status, unspecified; F32.9 Major depressive disorder, single episode, unspecified; Z87.891 Personal history of nicotine dependence; Z95.9 Presence of cardiac and vascular implant and graft, unspecified; W10.1XXA Fall (on)(from) sidewalk curb, initial encounter; Y92.480 Sidewalk as the place of occurrence of the external cause; Y93.01 Activity, walking, marching and hiking; Z79.899 Other long term (current) drug therapy; Z79.82 Long term (current) use of aspirin; Z88.6 Allergy status to analgesic agent; Z88.8 Allergy status to other drugs, medicaments and biological substances; Z96.652 Presence of left artificial knee joint; I25.2 Old myocardial infarction; Y99.9 Unspecified external cause status

== ENCOUNTER 2016-10-12 13:03 | Inpatient (IN) | payer MEDICARE, BC ==
[~2016-10-12] VITALS: Ht 177.8 cm; Wt 83.3 kg
[~2016-10-12 13:03] MED LIST: ASPI1TAB PO; ATOR40TA75 PO; CO Q100C PO; FLOM5CAP PO; GLUCTAB6 PO; IRBE150T12 PO; NITR0.4S14 SL; OCUVTAB PO; PANT40TA2 PO; PLAV1TAB2 PO; SERT-155 PO
[2016-10-12] MEDS ORDERED: FLEET ENEMA PR PRN (13:30)
[2016-10-12] MEDS ORDERED: traMADol 50 MG TAB PO PRN (13:30)
[2016-10-12] MEDS ORDERED: NITROGLYCERIN 0.4 MG SUBL TABLET SL PRN (13:30)
[2016-10-12] MEDS ORDERED: MIRALAX *UNIT DOSE* 17GM PACKET PO PRN (13:30)
[2016-10-12] MEDS ORDERED: MOM 30ML SUSPENSION UDC PO PRN (13:30)
[2016-10-12] MEDS ORDERED: SIMETHICONE 80 MG CHEW TAB PO PRN (13:30)
[2016-10-12 14:08] VITALS: BP 132/73
[2016-10-12] MEDS: ACETAMINOPHEN TAB 650MG DOSE (2X325MG) PO PRN (15:33)
--- NOTE | 2016-10-12 16:38 | PMRNOTEPD ---
PMR Note Patient is an 86-year-old white male who fell on 10/06/16 and was admitted for left hip fracture which was treated with left cemented hemiarthroplasty on by Dr. Amauri Barrett. Patient's postoperative course has shown a mild anemia but is been complicated by delirium which is now clearing Patient participate and benefit from more acute and intensive rehabilitation. Patient is admitted to acute rehabilitation unit for a trial of musculoskeletal rehabilitation with 3 hours day of physical and occupational therapy and anticipate length of stay of 7-10 days with was felt to be a good prognosis for returning to independent living at home. Patient will have to achieve modified independent skills though he does have a supportive son and daughter who will be of some assistance to him. He will need ongoing monitoring of his medical as well as neurologic status with this recent delirium. Patient will need ongoing DVT prophylaxis and is on Coumadin management for that currently has an elevated INR of 2.4 in Coumadin is being held. Orthopedics and medicine services have been consulted to assist him following this patient. H&P has been dictated and his job #[id number]. VIDA LOPEZ MD Oct 12, 2016 16:38
[2016-10-12] MEDS: NYSTATIN 500,000 U/5 ML SUSP UDC SSP SCH ×2 (17:08→20:10)
--- NOTE | 2016-10-12 18:25 | PMRHPE ---
DATE OF ADMISSION: 10/12/2016 REASON FOR ADMISSION: Rehabilitation of left hip fracture status post left hip hemiarthroplasty via posterolateral approach on 10/07/2016. HISTORY OF THE PRESENT ILLNESS: The patient is an 86-year-old white male who is living independently and went out to dinner with his son and while walking from the restaurant, the patient tripped and landed on his left hip, sustaining a left femoral neck fracture. He was admitted to [facility] for evaluation on 10/06/2016 and was found to have sustained a hip fracture. The patient was felt to require surgical management and a left hemiarthroplasty was performed by Dr. Amauri Grullon on 10/07/2016. The patient's postoperative course, however, was complicated by what appears to be delirium related to the anesthesia and analgesics. This limited the patient's ability to participate in therapy, and he showed disorientation and confusion along with some hallucinations. However, this has been clearing and today, the patient was able to show greater orientation and much better memory and was able to provide sustained effort and participation in physical and occupational therapy, as well as remember in physical therapy his therapist and elements of what he had been taught the day before while he was still somewhat disoriented. The patient did show good endurance and is felt to be able to participate in and benefit from acute intensive rehab to provide training along with supervision of the recent delirium, pain management, treatment of the anemia from the hip fracture, as well as patient's coronary artery disease, hypertension, hyperlipidemia, gastroesophageal reflux disease (GERD), anxiety and depression. PAST MEDICAL HISTORY: 1. Atherosclerotic cardiovascular disease with: a. Coronary artery disease. b. Hypertension. c. Hyperlipidemia. 2. Gastroesophageal reflux disease. 3. Anxiety/depression. PAST SURGICAL HISTORY: Includes: 1. Coronary artery stent placement times three. 2. Bilateral inguinal hernia repairs. 3. Status post multiple colonoscopies. ALLERGIES: The patient is allergic to ATORVASTATIN, BETA BLOCKERS and NAPROXEN. MEDICATIONS ON ADMISSION TO THE ACUTE REHAB UNIT: - Tylenol 650 mg every 6 hours for pain or fever - atorvastatin 40 mg by mouth nightly for lipids - Senokot S one tablet twice a day for bowel program. - Avapro 150 mg by mouth daily for hypertension - Milk of Magnesia 30 mL daily as needed for constipation - Nitrostat 1/150 sublingual every 5 minutes as needed anginal chest pain - Nystatin suspension 5 mL swish and spit three times a day for thrush - Ocuvite I-Brooke one tablet by mouth daily for eye nutrition - Protonix 40 mg by mouth daily for GERD - MiraLAX one packet daily for constipation on an as needed basis - sertraline 50 mg daily for anxiety and depression - simethicone 8 mg four times a day as needed for gaseous distention - Fleets enema one per rectum daily as needed for constipation - tamsulosin 0.4 mg by mouth nightly for urinary retention - Tramadol 50 mg by mouth every 4 hours as needed for moderate to severe pain FAMILY HISTORY: Noncontributory. SOCIAL HISTORY: Patient with a 14 pack-year smoking history, has not been smoking for a number of years. He does not use alcohol. He is , lives alone. His daughter and son are very supportive of the patient and see him frequently. The patient does not have an illicit drug usage or history. REVIEW OF SYSTEMS: Basically, patient's pain in his hip. No other current problem or complaints on 10-point review. PHYSICAL EXAMINATION: The patient is average height, slightly overweight, elderly white male who was alert, pleasant and cooperative. Vital signs show temperature of 98.9, blood pressure 132/73, pulse 82, respirations 18 and pulse oximetry is 97% on room air. The patient weighs 97 kg and is of average height. HEENT: Normocephalic/atraumatic. Patient using reading glasses for visual correction. Extraocular motions are intact. Pupils are equal, round, reactive to light and accommodation. Hearing is fairly good. Head is normocephalic and atraumatic. Neck is supple. Lungs are clear in all vera to auscultation. Coronary shows a regular rate and rhythm with normal S1 and S2, without S3, S4, murmurs or rubs. Abdomen is mildly obese but benign with normal bowel sounds in all quadrants. Left hip has a dressing over the incision with a little bit of serous drainage onto the lower aspect of the dressing. No heat, erythema, or odor is noted in the area. Patient with normal functional range of motion and strength of the bilateral upper and lower extremities with the exception of guarding in the right hip and an old left knee surgery with some thickening of the knee on the left. Neurologically, the patient is alert and oriented to person and place, general time knowing that it is summer and was not able to spontaneously produce month, day, date or year but expresses understanding of his situation and his memory seems to be fair to good at this time. He is pleasant and cooperative with his speech being clear, coherent and appropriate. Light touch is intact and symmetrical in bilateral upper and lower extremities but is better in the uppers versus the lower extremities, vibration similarly is intact in bilateral upper and lower extremities but much clearer and distinct in the upper extremities than the lower extremities. Balance was not tested. Of note, patient with some thrush on his tongue. The tongue is midline and otherwise oropharynx is without lesions. LABORATORY DATA: White blood cell count is 8.2 thousand, hemoglobin and hematocrit is 11.3 and 32.5% with an MCV of 94.8 and platelet count of 288,000, showing the patient to have a mild anemia. Electrolytes are normal but BUN is elevated at 28 and creatinine is 0.66 with normal glomerular filtration rate and fasting glucose today. ASSESSMENT AND PLAN: 1. Rehabilitation of left hip fracture, status post hemiarthroplasty. The patient will need posterior hip precautions and instruction on those along with work on progressive range of motion and strengthening of the left hip, as there is guarding. He will need ongoing wound care and observation as there appears to be a little serous breakdown of clot and drainage on the lower end of the incision. Overall, though, the patient needs to regain modified independence in mobility and activities of daily livings (ADLs) to return to living independently at home and will require physical and occupational therapy to do that. He is capable of 3 hours of therapy per day; however, he has had some secondary medical problems resulting in the delirium and will need ongoing monitoring of that along with adjustment of pain medication as he undergoes treatment with avoidance of medications that would contribute to the delirium. Orthopedic surgery will be consulted as well as medicine, along with ongoing rehab, nursing and physiatry management. Anticipated length of stay is 7-10 days. However, the patient may progress faster. 2. Delirium. This appears to be most likely related to patient's response to analgesia and the anesthesia, most notably from his surgery and now appears to be clearing. This is somewhat suggestive the patient may have difficulty breaking down the medication but also may have some long-term cognitive elements that were unmasked by the stress and the exposure to these medications. Will continue to monitor this and try to avoid medications that will diminish the patient's attention, concentration and focus. 3. Mild anemia. Will continue to monitor this. 4. Atherosclerotic cardiovascular disease, including coronary artery disease with angina, hypertension and hyperlipidemia. Will continue his antihypertensive and lipid medications, but also will not have the nitroglycerin available in case of any angina and will monitor the patient for any signs and symptoms of this during the course of his 3 hours a day of acute intensive rehab. 5. Gastroesophageal reflux disease. Will continue with Protonix. 6. Anxiety/depression. The patient is not currently showing any signs of anxiety or depression, and it does not appear this was an element in his delirium; however, will continue to monitor him. Will continue the patient with his Zoloft. POST-ADMISSION PHYSICIAN EVALUATION: Patient is consistent with preadmission screen and chart review and by review of patient up on the medical-surgical unit prior to accepting him for admission today, so he is consistent with his records and our evaluation. I do think he will benefit from participating in acute intensive rehab but also does need the more intensive medical/nursing supervision due to his multiple medical problems and the recent delirium, which the patient has not fully cleared from as he is not fully oriented at this time. I do feel the patient has a good prognosis to return to home and anticipated length of stay is 7-10 days. Time spent on chart review, history and physical and documentation was greater than 70 minutes.
[2016-10-12 20:00] VITALS: BP 158/74
[2016-10-12] MEDS: TAMSULOSIN 0.4 MG CAP PO SCH (20:10)
[2016-10-12] MEDS: SENOKOT S TAB PO SCH (20:10)
[2016-10-12] MEDS: ATORVASTATIN 20 MG TAB PO SCH (20:10)
[2016-10-13 06:00] VITALS: BP 148/81
[2016-10-13 06:34] LABS: BASO # 0.1 K/mm3 (0.0-0.2); BASO % 0.9 % (0.0-1.0); EOS # 0.5 K/mm3 (0.0-0.50); EOS % 5.2 % (0.0-3.0); LARGE UNSTAINED CELL # 0.4 K/mm3 (0.0-0.4); LYMPH # 2.2 K/mm3 (1.5-4.5); LYMPH % 23.7 % (24.0-44.0); MEAN CORPUSCULAR HEMOGLOBIN 32.5 pg (27.0-33.0); MEAN CORPUSCULAR HGB CONC 34.1 g/dl (32.0-36.5); MEAN CORPUSCULAR VOLUME 95.3 fl (80.0-96.0); MONO # 0.8 K/mm3 (0.0-0.8); MONO % 8.6 % (0.0-5.0); NEUTROPHILS # 5.2 K/mm3 (1.8-7.7); NEUTROPHILS % 57.6 % (36.0-66.0); PLATELET COUNT, AUTOMATED 349 k/mm3 (150-450); RED CELL DISTRIBUTION WIDTH 12.4 % (11.5-14.5); WHITE BLOOD COUNT 9.1 K/mm3 (4.0-10.0)
[2016-10-13 06:41] LABS: INR 1.64
[2016-10-13 06:52] LABS: ALBUMIN 2.7 GM/DL (3.2-5.2); ALKALINE PHOSPHATASE 76 U/L (45-117); ALT/SGPT 48 U/L (12-78); ANION GAP 8 MEQ/L (8-16); AST/SGOT 41 U/L (15-37); BILIRUBIN,TOTAL 1.9 MG/DL (0.2-1.0); BLOOD UREA NITROGEN 23 MG/DL (7-18); CALCIUM LEVEL 8.6 MG/DL (8.8-10.2); CARBON DIOXIDE LEVEL 26 MEQ/L (21-32); CHLORIDE LEVEL 107 MEQ/L (98-107); CREATININE FOR GFR 0.67 MG/DL (0.70-1.30); GLOMERULAR FILTRATION RATE > 60.0 (>35); GLUCOSE, FASTING 98 MG/DL (83-110); SODIUM LEVEL 141 MEQ/L (136-145); TOTAL PROTEIN 5.7 GM/DL (6.4-8.2)
[2016-10-13] MEDS: OCUVITE 1 TAB PO SCH (08:52)
[2016-10-13] MEDS: SERTRALINE HCL 50 MG TAB PO SCH (08:53)
[2016-10-13] MEDS: SENOKOT S TAB PO SCH ×2 (08:53→21:00)
[2016-10-13] MEDS: IRBESARTAN 150 MG TAB PO SCH (08:53)
[2016-10-13] MEDS: NYSTATIN 500,000 U/5 ML SUSP UDC SSP SCH ×3 (08:53→21:21)
[2016-10-13] MEDS: PANTOPRAZOLE 40MG TAB (PROTONIX) PO SCH (08:53)
--- NOTE | 2016-10-13 10:37 | CR.PDOC ---
[facility] Consultation Consultation CONSULTATION REPORT FOR: Dr Vizcarra REASON FOR CONSULTATION: Medical Management DATE OF VISIT: 10/13/16 ATTENDING: Dr. Ki Parker HPI: 86year old M S/P left hip fracture status post hemiarthroplasty 10/07 as per orthopedics. Transferred to the care of [facility] 10/12/16. No acute medical complaints today. Denies any fevers, chills, weakness, fatigue, Headache , Chest Pain, Shortness of breath, cough, palpitations, abdominal pain, N/V/D or changes in bowel or bladder habits. PMHx: CAD/stent 3 Hypertension Dyslipidemia GERD Anxiety Depression PSHX: Bilateral inguinal hernia repair Colonoscopy Cardiac stent 3 ROS: As noted in HPI, otherwise 11pt ROS of systems reviewed and unremarkable. PE: GEN: 86yoM, appears stated age. Well-nourished, well developed. No acute distress. Alert and oriented x 3. Pleasant, interactive. HEENT: Normocephalic, atraumatic. Pupils are equal, round, and reactive to light. Extraocular movements are intact. No nystagmus appreciated. Sclera are nonicteric. Conjunctiva without injection. Nose midline. Nasal turbinates without bogginess. No facial asymmetry. Moist mucous membranes. Dentition fair. Pharynx pink and moist. Neck supple, trachea midline. No lymphadenopathy or thyromegaly appreciated. CHEST: Regular rate and rhythm, +S1, +S2 LUNGS: Clear to auscultation bilaterally. No wheezes, rales, or rhonchi. Breathing appears symmetric and easy. Patient is speaking in full sentences. No accessory muscle use. ABD: Round, soft, non-tender, non-distended. +Bowel sounds throughout. No rebound or guarding. No costovertebral angle tenderness. EXT: Pulses 2+ bilaterally dorsalis pedis and radial. No lower extremity edema appreciated. SKIN: [place], dry, warm. Capillary refill <2sec. No rashes. NEURO: Alert and oriented x 3. Cranial nerves III-XII are intact. No focal deficits appreciated. A&P: 86year old M S/P left hip fracture status post hemiarthroplasty 10/07 as per orthopedics. Transferred to the care of [facility] 10/12/16. 1. Left hip fracture status post hemiarthroplasty 10/07/16 as per orthopedics. Management as per ARU Dr Vizcarra. PT/OT as per ARU. Pain control as per ARU. Bowel care as per ARU. DVT prophylaxis. Coumadin as per orthopedics. 2. CAD/stent. Patient remains on statin. Aspirin on hold. No beta nico secondary to allergy. 3. Hypertension. Continue irbesartan 150 mg by mouth daily. 4. Dyslipidemia. Continue Lipitor 40 mg daily. 5. GERD. Continue Protonix 40 mg daily. 6. Anxiety/depression. Continue sertraline. 7. Urinary retention. Continue Flomax. Thank you for your consultation. We will continue to follow along with you. Vital Signs/I&O Vital Signs Date Time Temp Pulse Resp B/P (MAP) Pulse Ox O2 Delivery O2 Flow Rate FiO2 10/13/16 08:53 148/81 10/13/16 06:00 99.1 82 18 97 Room Air I&O- Last 24 Hours up to 6 AM 10/13/16 06:00 Intake Total 480 ml Output Total 1475 ml Balance -995 ml Laboratory Data Labs 24H Laboratory Tests 2 10/13/16 03:41: Urine Appearance CLEAR, Urine Color YELLOW, Urine pH 6.0, Urine Specific [place] 1.013, Urine Protein NEGATIVE, Urine Glucose (UA) NEGATIVE, Urine Ketones NEGATIVE, Urine Urobilinogen 2.0H, Urine Bilirubin NEGATIVE, Urine Leukocyte Esterase NEGATIVE, Urine Blood NEGATIVE, Urine Nitrite NEGATIVE, Urine WBC (Auto) 0, Urine RBC (Auto) 4H, Urine Hyaline Casts (Auto) 0, Urine Bacteria (Auto) NEGATIVE, Urine Squamous Epithelial Cells 0, Urine Sperm (Auto) 10/13/16 06:16: White Blood Count 9.1, Red Blood Count 3.95L, Hemoglobin 12.8L, Hematocrit 37.6L , Mean Corpuscular Volume 95.3, Mean Corpuscular Hemoglobin 32.5, Mean Corpuscular Hemoglobin Concent 34.1, Red Cell Distribution Width 12.4, Platelet Count 349, Neutrophils (%) (Auto) 57.6, Lymphocytes (%) (Auto) 23.7L, Monocytes (%) (Auto) 8.6H, Eosinophils (%) (Auto) 5.2H, Basophils (%) (Auto) 0.9, Neutrophils # (Auto) 5.2, Lymphocytes # (Auto) 2.2, Monocytes # (Auto) 0.8, Eosinophils # (Auto) 0.5, Basophils # (Auto) 0.1, Large Unclassified Cells % 4.0 , Large Unclassified Cells # 0.4, Prothrombin Time 19.9H, Prothromb Time International Ratio 1.64, Anion Gap 8, Glomerular Filtration Rate > 60.0, Blood Urea Nitrogen 23H, Creatinine 0.67L, Sodium Level 141, Potassium Level 4.0, Chloride Level 107, Carbon Dioxide Level 26, Calcium Level 8.6L, Aspartate Amino Transf (AST/SGOT) 41H, Alanine Aminotransferase (ALT/SGPT) 48, Alkaline Phosphatase 76, Total Bilirubin 1.9H, Total Protein 5.7L, Albumin 2.7L, Albumin/ Globulin Ratio 0.90L CBC/BMP Laboratory Tests 10/13/16 06:16 Red Blood Count 3.95 L, Mean Corpuscular Volume 95.3, Mean Corpuscular Hemoglobin 32.5, Mean Corpuscular Hemoglobin Concent 34.1, Red Cell Distribution Width 12.4, Neutrophils (%) (Auto) 57.6, Lymphocytes (%) (Auto) 23.7 L, Monocytes (%) (Auto) 8.6 H, Eosinophils (%) (Auto) 5.2 H, Basophils (%) (Auto) 0.9, Neutrophils # (Auto) 5.2, Lymphocytes # (Auto) 2.2, Monocytes # ( Auto) 0.8, Eosinophils # (Auto) 0.5, Basophils # (Auto) 0.1, Calcium Level 8.6 L , Aspartate Amino Transf (AST/SGOT) 41 H, Alanine Aminotransferase (ALT/SGPT) 48 , Alkaline Phosphatase 76, Total Bilirubin 1.9 H, Total Protein 5.7 L, Albumin 2.7 L Allergies Coded Allergies: Beta Adrenergic Blockers (Verified Adverse Reaction, Severe, INTOLERANCE PER DR. GAMBOA, 10/06/16) Naproxen (Verified Adverse Reaction, Intermediate, ANXIETY, 10/06/16) Home Medications Scheduled (Sertraline HCl) 50 Mg Tab, 50 MG PO DAILY, (Reported) (Co Q-10) 100 Mg Cap, 100 MG PO BID, (Reported) (Glucosamine Chondroitin) 1 Tab Tab, 1 TAB PO DAILY, (Reported) Aspirin (Aspirin 81) 81 Mg Tab, 81 MG PO DAILY, (Reported) Atorvastatin Calcium (Atorvastatin Calcium) 40 Mg Tab, 40 MG PO QHS, (Reported) Irbesartan (Irbesartan) 150 Mg Tab, 150 MG PO DAILY, (Reported) Multivitamins (Ocuvite) 1 Tab Tab, 1 TAB PO DAILY, (Reported) Pantoprazole Sodium (Pantoprazole Sodium) 40 Mg Tab, 40 MG PO DAILY, (Reported) Tamsulosin Hydrochloride (Flomax) 0.4 Mg Cap, 0.4 MG PO QHS for 30 Days, #30 Scheduled PRN Nitroglycerin (Nitroglycerin) 0.4 Mg Sub, 0.4 MG SL Q5MP PRN for CHEST PAIN, ( Reported) Moni Hawkins Oct 13, 2016 10:37
[2016-10-13 14:00] VITALS: BP 110/70
--- NOTE | 2016-10-13 15:39 | IPNPDOC ---
[employer] Progress Note DATE OF SERVICE: 10/13/16 DATE OF ADMISSION: Oct 12, 2016 at 13:55 INPATIENT REHABILITATION ADMISSION DAY: #2 SUBJECTIVE: Patient is a 86-year-old white male with left hip fracture status post hemiarthroplasty from posterior lateral approach. Patient's course is been complicated by response anesthesia with delirium, mild anemia, some atelectasis and atherosclerotic cardiovascular disease including some hypertension. Patient seen in his room and then later in the hallway and manual wheelchair where he is sitting up straight. He did have an episode of anxiety a mild panic attack when he lost his balance to the side with a transfer but was stabilized by therapy and no injury was sustained. I did see the patient immediately after this event and there was no signs of seizure (postictal cognition, incontinence of bowel or bladder) and therapist description suggested bidirectional beats of shaking though patient was reported to have a somewhat glazed look. Patient is currently without complaints though he does have a little bit of left hip pain. ALLERGIES: See Below MEDICATIONS: Reviewed, see below. OBJECTIVE: VITAL SIGNS: Please see below. PHYSICAL EXAMINATION: GENERAL: Short well-nourished well-developed elderly white male, who is in very mild musculoskeletal distress favoring his left hip. He has mildly anxious. HEENT: Normocephalic/atraumatic with no tongue biting. Mild thrush is present on the tongue. CARDIOVASCULAR: Regular rate and rhythm with normal S1-S2 without S3-S4 murmurs or rubs. LUNGS: Good air movement with all vera clear to auscultation with no rales, wheezes or rhonchi appreciated. ABDOMEN: Benign, mildly obese, nontender with normal bowel sounds in all quadrants. NEUROLOGICAL: Patient is alert and oriented to person, place, his general situation, and season, date of the , but not to specific month. This however slightly improved from yesterday and was checked immediately after his shaking spell. Good motor function in bilateral upper and right lower extremity with guarding on the left lower extremity. SKIN: Dressing intact over left hip with no drainage or signs of inflammation. LABORATORY DATA: Reviewed. Please see below. MICROBIOLOGY: Please see below. IMAGING: No new images today. DVT prophylaxis ordered?: Coumadin with INR of 1.64 and target of 1.7-2.0. Coumadin ordered by Ms. Cali has been entered. ASSESSMENT AND PLAN: 1. Rehabilitation of left hip fracture with hemiarthroplasty: Patient on posterior hip precautions and weightbearing as tolerated is started today in physical and occupational therapy and showing good initial efforts and increase in gaiting when observed in more physical therapy session. Overall patient is motivated and probably will require 7-10 days of musculoskeletal rehabilitation to achieve discharge to home goals. Patient will need to be modified independent in ADLs and mobility as he lives alone. Will focus on good mechanics and posterior hip precautions and trying overtraining patient into doing these things consistently. 2. Shaking spell: Patient without prior seizure history and examination today immediately after the event that is more consistent with a brief panic attack when he lost balance and did not know how to recover his balance. We will continue observe this and if any repeat situations occur I will consider getting an EEG and possible neurology consultation versus starting patient on an anxiolytic. 3. Anemia: This is mild with H&H today 12.8 and 37.6%. We will continue to watch this. 4. Hypertension: Mildly elevated this morning at 148/81. Assess and project management consultant will adjust the antihypertensive as appropriate. 5. Renal: BUN is mildly elevated at 23 with normal creatinine of 0.67 which we will continue to watch. 6. Nutrition: Albumin has been stressed by the fracture and is currently 2.7. We will periodically check this in trying encourage good nutrition. 7. Delirium: Patient's orientation and cognition have improved since my initial evaluation yesterday. We will continue to watch this and will treat as needed. TIME SPENT: Chart Review, examination and documentation require greater than 25 minutes. Allergies Coded Allergies: Beta Adrenergic Blockers (Verified Adverse Reaction, Severe, INTOLERANCE PER DR. GAMBOA, 10/06/16) Naproxen (Verified Adverse Reaction, Intermediate, ANXIETY, 10/06/16) Vital Signs Vital Signs Date Time Temp Pulse Resp B/P (MAP) Pulse Ox O2 Delivery O2 Flow Rate FiO2 10/13/16 14:00 99.3 90 18 110/70 (83) 98 Room Air Laboratory Data CBC/BMP Laboratory Tests 10/13/16 06:16 Red Blood Count 3.95 L, Mean Corpuscular Volume 95.3, Mean Corpuscular Hemoglobin 32.5, Mean Corpuscular Hemoglobin Concent 34.1, Red Cell Distribution Width 12.4, Neutrophils (%) (Auto) 57.6, Lymphocytes (%) (Auto) 23.7 L, Monocytes (%) (Auto) 8.6 H, Eosinophils (%) (Auto) 5.2 H, Basophils (%) (Auto) 0.9, Neutrophils # (Auto) 5.2, Lymphocytes # (Auto) 2.2, Monocytes # ( Auto) 0.8, Eosinophils # (Auto) 0.5, Basophils # (Auto) 0.1, Calcium Level 8.6 L , Aspartate Amino Transf (AST/SGOT) 41 H, Alanine Aminotransferase (ALT/SGPT) 48 , Alkaline Phosphatase 76, Total Bilirubin 1.9 H, Total Protein 5.7 L, Albumin 2.7 L Labs 24H Laboratory Tests 2 10/13/16 03:41: Urine Appearance CLEAR, Urine Color YELLOW, Urine pH 6.0, Urine Specific [place] 1.013, Urine Protein NEGATIVE, Urine Glucose (UA) NEGATIVE, Urine Ketones NEGATIVE, Urine Urobilinogen 2.0H, Urine Bilirubin NEGATIVE, Urine Leukocyte Esterase NEGATIVE, Urine Blood NEGATIVE, Urine Nitrite NEGATIVE, Urine WBC (Auto) 0, Urine RBC (Auto) 4H, Urine Hyaline Casts (Auto) 0, Urine Bacteria (Auto) NEGATIVE, Urine Squamous Epithelial Cells 0, Urine Sperm (Auto) 10/13/16 06:16: White Blood Count 9.1, Red Blood Count 3.95L, Hemoglobin 12.8L, Hematocrit 37.6L , Mean Corpuscular Volume 95.3, Mean Corpuscular Hemoglobin 32.5, Mean Corpuscular Hemoglobin Concent 34.1, Red Cell Distribution Width 12.4, Platelet Count 349, Neutrophils (%) (Auto) 57.6, Lymphocytes (%) (Auto) 23.7L, Monocytes (%) (Auto) 8.6H, Eosinophils (%) (Auto) 5.2H, Basophils (%) (Auto) 0.9, Neutrophils # (Auto) 5.2, Lymphocytes # (Auto) 2.2, Monocytes # (Auto) 0.8, Eosinophils # (Auto) 0.5, Basophils # (Auto) 0.1, Large Unclassified Cells % 4.0 , Large Unclassified Cells # 0.4, Prothrombin Time 19.9H, Prothromb Time International Ratio 1.64, Anion Gap 8, Glomerular Filtration Rate > 60.0, Blood Urea Nitrogen 23H, Creatinine 0.67L, Sodium Level 141, Potassium Level 4.0, Chloride Level 107, Carbon Dioxide Level 26, Calcium Level 8.6L, Aspartate Amino Transf (AST/SGOT) 41H, Alanine Aminotransferase (ALT/SGPT) 48, Alkaline Phosphatase 76, Total Bilirubin 1.9H, Total Protein 5.7L, Albumin 2.7L, Albumin/ Globulin Ratio 0.90L Current Medications Current Medications Current Medications Acetaminophen (Tylenol Tab) 650 mg Q6HP PRN PO PAIN OR FEVER Last administered on 10/12/16 15:33; Start 10/12/16 at 13:30; Stop 11/11/16 at 13:29 Atorvastatin Calcium (Lipitor) 40 mg QHS PO Last administered on 10/12/16 20: 10; Start 10/12/16 at 21:00; Stop 11/11/16 at 20:59 Irbesartan (Avapro) 150 mg DAILY PO Last administered on 10/13/16 08:53; Start 10/13/16 at 09:00; Stop 11/12/16 at 08:59 Magnesium Hydroxide (Milk Of Magnesia) 30 ml DAILYPRN PRN PO CONSTIPATION; Start 10/12/16 at 13:30; Stop 11/11/16 at 13:29 Multivitamins (Ocuvite(I-Brooke)) 1 tab DAILY PO Last administered on 10/13/16 08:52; Start 10/13/16 at 09:00; Stop 11/12/16 at 08:59 Nitroglycerin (Nitrostat (1/ 150)) 0.4 mg Q5MP PRN SL CHEST PAIN; Start at 13:30; Stop 11/11/16 at 13:29 Nystatin (Mycostatin) 5 ml TID SSP Last administered on 10/13/16 08:53; Start 10/12/16 at 16:00; Stop 10/16/16 at 15:59 Pantoprazole Sodium (Protonix) 40 mg DAILY PO Last administered on 10/13/16 08 :53; Start 10/13/16 at 09:00; Stop 11/12/16 at 08:59 Polyethylene Glycol (Miralax) 1 pkt DAILY PRN PO CONSTIPATION; Start 10/12/16 at 13:30; Stop 11/11/16 at 13:29 Senna/Docusate Sodium (Senokot S) 1 tab BID PO Last administered on 10/13/16 08:53; Start 10/12/16 at 21:00; Stop 11/11/16 at 20:59 Sertraline HCl (Zoloft) 50 mg DAILY PO Last administered on 10/13/16 08:53; Start 10/13/16 at 09:00; Stop 11/12/16 at 08:59 Simethicone (Mylicon) 80 mg QIDP PRN PO BLOATING; Start 10/12/16 at 13:30; Stop 11/11/16 at 13:29 Sodium Biphosphate/ Sodium Phosphate (Fleet Enema) 1 ea DAILYPRN PRN MS CONSTIPATION; Start 10/12/16 at 13:30; Stop 11/11/16 at 13:29 Tamsulosin HCl (Flomax) 0.4 mg QHS PO Last administered on 10/12/16 20:10; Start 10/12/16 at 21:00; Stop 11/11/16 at 20:59 Tramadol HCl (Ultram) 50 mg Q4HP PRN PO MODERATE PAIN (PS 5-7); Start 10/12/16 at 13:30; Stop 10/19/16 at 13:29 VIDA LOPEZ MD Oct 13, 2016 15:39
[2016-10-13] MEDS ORDERED: WARFARIN SOD 5 MG TAB PO ONE (17:00)
[2016-10-13] MEDS: ACETAMINOPHEN TAB 650MG DOSE (2X325MG) PO PRN (17:10)
[2016-10-13 20:27] VITALS: BP 155/70
[2016-10-13] MEDS: ATORVASTATIN 20 MG TAB PO SCH (21:21)
[2016-10-13] MEDS: TAMSULOSIN 0.4 MG CAP PO SCH (21:21)
[2016-10-14] MEDS: ACETAMINOPHEN TAB 650MG DOSE (2X325MG) PO PRN ×3 (00:31→20:02)
[2016-10-14 06:00] VITALS: BP 163/82
[2016-10-14 06:29] LABS: MEAN CORPUSCULAR HEMOGLOBIN 32.3 pg (27.0-33.0); MEAN CORPUSCULAR HGB CONC 33.8 g/dl (32.0-36.5); MEAN CORPUSCULAR VOLUME 95.6 fl (80.0-96.0); RED CELL DISTRIBUTION WIDTH 12.6 % (11.5-14.5); WHITE BLOOD COUNT 9.2 K/mm3 (4.0-10.0)
[2016-10-14 06:36] LABS: INR 1.85
[2016-10-14 06:51] LABS: ALBUMIN 2.7 GM/DL (3.2-5.2); ALBUMIN/GLOBULIN RATIO 0.75 (1.00-1.93); ALKALINE PHOSPHATASE 78 U/L (45-117); ALT/SGPT 49 U/L (12-78); ANION GAP 3 MEQ/L (8-16); AST/SGOT 37 U/L (15-37); BILIRUBIN,TOTAL 1.8 MG/DL (0.2-1.0); BLOOD UREA NITROGEN 27 MG/DL (7-18); CARBON DIOXIDE LEVEL 28 MEQ/L (21-32); CHLORIDE LEVEL 108 MEQ/L (98-107); CREATININE FOR GFR 0.83 MG/DL (0.70-1.30); GLOMERULAR FILTRATION RATE > 60.0 (>35); GLUCOSE, FASTING 99 MG/DL (83-110); POTASSIUM SERUM 4.1 MEQ/L (3.5-5.1); SODIUM LEVEL 139 MEQ/L (136-145); TOTAL PROTEIN 6.3 GM/DL (6.4-8.2)
[2016-10-14] MEDS: OCUVITE 1 TAB PO SCH (10:24)
[2016-10-14] MEDS: IRBESARTAN 150 MG TAB PO SCH (10:24)
[2016-10-14] MEDS: SENOKOT S TAB PO SCH ×2 (10:25→20:02)
[2016-10-14] MEDS: SERTRALINE HCL 50 MG TAB PO SCH (10:25)
[2016-10-14] MEDS: PANTOPRAZOLE 40MG TAB (PROTONIX) PO SCH (10:25)
[2016-10-14] MEDS: NYSTATIN 500,000 U/5 ML SUSP UDC SSP SCH ×3 (10:25→20:02)
--- NOTE | 2016-10-14 12:00 | IPNPDOC ---
Coverstitch Machine Operator Progress Note DATE OF SERVICE: 10/14/16 DATE OF ADMISSION: Oct 12, 2016 at 13:55 INPATIENT REHABILITATION ADMISSION DAY: #3 SUBJECTIVE: Patient is a 86-year-old white male with left hip fracture status post hemiarthroplasty from posterior lateral approach. Patient's course is been complicated by response anesthesia with delirium, mild anemia, some atelectasis and atherosclerotic cardiovascular disease including some hypertension. Patient seen in his room. where he is laying in bed. Patient is currently without complaints though he does have a little bit of left hip pain. ALLERGIES: See Below MEDICATIONS: Reviewed, see below. OBJECTIVE: VITAL SIGNS: Please see below. PHYSICAL EXAMINATION: GENERAL: Short well-nourished well-developed elderly white male, who is in very mild musculoskeletal distress favoring his left hip. He was less anxious. HEENT: Normocephalic/atraumatic with no tongue biting. Mild thrush is present on the tongue. CARDIOVASCULAR: Regular rate and rhythm with normal S1-S2. 2/4 bilateral radial pulses. LUNGS: Good air movement with all vera clear to auscultation with no rales, wheezes or rhonchi appreciated. ABDOMEN: Benign, mildly obese, nontender with normal bowel sounds in all quadrants. NEUROLOGICAL: Patient is alert and oriented to person, place, his general situation, and season, date of the , , but not to specific month. This however slightly improved from yesterday and was checked immediately after his shaking spell. Good motor function in bilateral upper and right lower extremity with guarding on the left lower extremity. SKIN: Dressing intact over left hip with no drainage or signs of inflammation. LABORATORY DATA: Reviewed. Please see below. MICROBIOLOGY: Please see below. IMAGING: No new images today. DVT prophylaxis ordered?: Coumadin with INR of 1.85 and target of 1.7-2.0. Coumadin ordered by Ms. Cali. ASSESSMENT AND PLAN: 1. Rehabilitation of left hip fracture with hemiarthroplasty: Patient on posterior hip precautions and weightbearing as tolerated has started physical and occupational therapy and showing good initial efforts and increase in gaiting when observed in more physical therapy session. Overall patient is motivated and probably will require 7-10 days of musculoskeletal rehabilitation to achieve discharge to home goals. Patient will need to be modified independent in ADLs and mobility as he lives alone. Will focus on good mechanics and posterior hip precautions and trying overtraining patient into doing these things consistently. Rehab. Team Rounds: Patient showing some progression in endurance but difficulty with planning and coordinating motions and remembering learn safety strategies that physical occupational therapy or teaching. While his orientation has improved, patient is having difficulty with mental flexibility and adapted to tasks. Therefore, I will go ahead and increase estimated length of stay out to approximately 14 days or October 27. I will also be considering speech-language pathology for cognitive assessment. 2. Shaking spell: Patient without prior seizure history and examination today immediately after the event that is more consistent with a brief panic attack when he lost balance and did not know how to recover his balance. We will continue observe this and if any repeat situations occur I will consider getting an EEG and possible neurology consultation versus starting patient on an anxiolytic. No recurrence. 3. Anemia: This is mild with H&H today 11.9 and 35.3%. A little lower, but we will continue to watch this. 4. Hypertension: Elevated this morning at 163/82. Wholesale Manager will adjust the antihypertensive as appropriate. 5. Renal: BUN is more elevated at 27 with normal creatinine of 0.83 which we will continue to watch. 6. Nutrition: Albumin has been stressed by the fracture and is currently 2.7. We will periodically check this in trying encourage good nutrition. 7. Delirium: Patient's orientation and cognition remains improved since my initial evaluation. We will continue to watch this and will treat as needed. TIME SPENT: Chart Review, examination and documentation require greater than 25 minutes. Allergies Coded Allergies: Beta Adrenergic Blockers (Verified Adverse Reaction, Severe, INTOLERANCE PER DR. GAMBOA, 10/06/16) Naproxen (Verified Adverse Reaction, Intermediate, ANXIETY, 10/06/16) Vital Signs Vital Signs Date Time Temp Pulse Resp B/P (MAP) Pulse Ox O2 Delivery O2 Flow Rate FiO2 10/14/16 10:24 163/82 10/14/16 06:00 99.0 79 17 98 10/13/16 20:27 Room Air Laboratory Data CBC/BMP Laboratory Tests 10/14/16 06:01 Red Blood Count 3.69 L, Mean Corpuscular Volume 95.6, Mean Corpuscular Hemoglobin 32.3, Mean Corpuscular Hemoglobin Concent 33.8, Red Cell Distribution Width 12.6, Calcium Level 9.0, Aspartate Amino Transf (AST/SGOT) 37 , Alanine Aminotransferase (ALT/SGPT) 49, Alkaline Phosphatase 78, Total Bilirubin 1.8 H, Total Protein 6.3 L, Albumin 2.7 L Labs 24H Laboratory Tests 2 10/14/16 06:01: Prothrombin Time 21.9H, Prothromb Time International Ratio 1.85, Anion Gap 3L, Glomerular Filtration Rate > 60.0, Blood Urea Nitrogen 27H, Creatinine 0.83, Sodium Level 139, Potassium Level 4.1, Chloride Level 108H, Carbon Dioxide Level 28, Calcium Level 9.0, Aspartate Amino Transf (AST/SGOT) 37, Alanine Aminotransferase (ALT/SGPT) 49, Alkaline Phosphatase 78, Total Bilirubin 1.8H, Total Protein 6.3L, Albumin 2.7L, Albumin/Globulin Ratio 0.75L Current Medications Current Medications Current Medications Acetaminophen (Tylenol Tab) 650 mg Q6HP PRN PO PAIN OR FEVER Last administered on 10/14/16 06:45; Start 10/12/16 at 13:30; Stop 11/11/16 at 13:29 Atorvastatin Calcium (Lipitor) 40 mg QHS PO Last administered on 10/13/16 21: 21; Start 10/12/16 at 21:00; Stop 11/11/16 at 20:59 Irbesartan (Avapro) 150 mg DAILY PO Last administered on 10/14/16 10:24; Start 10/13/16 at 09:00; Stop 11/12/16 at 08:59 Magnesium Hydroxide (Milk Of Magnesia) 30 ml DAILYPRN PRN PO CONSTIPATION; Start 10/12/16 at 13:30; Stop 11/11/16 at 13:29 Multivitamins (Ocuvite(I-Brooke)) 1 tab DAILY PO Last administered on 10/14/16 10:24; Start 10/13/16 at 09:00; Stop 11/12/16 at 08:59 Nitroglycerin (Nitrostat (1/ 150)) 0.4 mg Q5MP PRN SL CHEST PAIN; Start at 13:30; Stop 11/11/16 at 13:29 Nystatin (Mycostatin) 5 ml TID SSP Last administered on 10/14/16 10:25; Start 10/12/16 at 16:00; Stop 10/16/16 at 15:59 Pantoprazole Sodium (Protonix) 40 mg DAILY PO Last administered on 10/14/16 10 :25; Start 10/13/16 at 09:00; Stop 11/12/16 at 08:59 Polyethylene Glycol (Miralax) 1 pkt DAILY PRN PO CONSTIPATION; Start 10/12/16 at 13:30; Stop 11/11/16 at 13:29 Senna/Docusate Sodium (Senokot S) 1 tab BID PO Last administered on 10/14/16 10:25; Start 10/12/16 at 21:00; Stop 11/11/16 at 20:59 Sertraline HCl (Zoloft) 50 mg DAILY PO Last administered on 10/14/16 10:25; Start 10/13/16 at 09:00; Stop 11/12/16 at 08:59 Simethicone (Mylicon) 80 mg QIDP PRN PO BLOATING; Start 10/12/16 at 13:30; Stop 11/11/16 at 13:29 Sodium Biphosphate/ Sodium Phosphate (Fleet Enema) 1 ea DAILYPRN PRN [place] CONSTIPATION; Start 10/12/16 at 13:30; Stop 11/11/16 at 13:29 Tamsulosin HCl (Flomax) 0.4 mg QHS PO Last administered on 10/13/16 21:21; Start 10/12/16 at 21:00; Stop 11/11/16 at 20:59 Tramadol HCl (Ultram) 50 mg Q4HP PRN PO MODERATE PAIN (PS 5-7); Start 10/12/16 at 13:30; Stop 10/19/16 at 13:29 VIDA LOPEZ MD Oct 14, 2016 12:00
[2016-10-14 14:00] VITALS: BP 98/63
[2016-10-14 20:00] VITALS: BP 127/59
[2016-10-14] MEDS: ATORVASTATIN 20 MG TAB PO SCH (20:02)
[2016-10-14] MEDS: TAMSULOSIN 0.4 MG CAP PO SCH (20:02)
[2016-10-15 05:59] VITALS: BP 164/62
[2016-10-15 07:20] LABS: INR 2.4
[2016-10-15] MEDS: PANTOPRAZOLE 40MG TAB (PROTONIX) PO SCH (09:12)
[2016-10-15] MEDS: NYSTATIN 500,000 U/5 ML SUSP UDC SSP SCH ×3 (09:13→20:50)
[2016-10-15] MEDS: OCUVITE 1 TAB PO SCH (09:13)
[2016-10-15] MEDS: SERTRALINE HCL 50 MG TAB PO SCH (09:13)
[2016-10-15] MEDS: IRBESARTAN 150 MG TAB PO SCH (09:13)
[2016-10-15] MEDS: ACETAMINOPHEN TAB 650MG DOSE (2X325MG) PO PRN ×3 (09:58→23:22)
--- NOTE | 2016-10-15 12:06 | IPNPDOC ---
Herbologist Progress Note DATE OF SERVICE: 10/15/16 DATE OF ADMISSION: Oct 12, 2016 at 13:55 INPATIENT REHABILITATION ADMISSION DAY: #4 SUBJECTIVE: Patient is a 86-year-old white male with left hip fracture status post hemiarthroplasty from posterior lateral approach. Patient's course is been complicated by response anesthesia with delirium, mild anemia, some atelectasis and atherosclerotic cardiovascular disease including some hypertension. Patient seen in his room. where he is laying in bed. Patient is currently without complaints though he does have a little bit of left hip pain. ALLERGIES: See Below MEDICATIONS: Reviewed, see below. OBJECTIVE: VITAL SIGNS: Please see below. PHYSICAL EXAMINATION: GENERAL: Short well-nourished well-developed elderly white male, who is in very mild musculoskeletal distress favoring his left hip. He was less anxious. HEENT: Normocephalic/atraumatic with no tongue biting. Mild thrush is present on the tongue, but about 1/2 of original amount. CARDIOVASCULAR: Regular rate and rhythm with normal S1-S2. 2/4 bilateral radial pulses. LUNGS: Good air movement with all vera clear to auscultation with no rales, wheezes or rhonchi appreciated. ABDOMEN: Benign, mildly obese, nontender with normal bowel sounds in all quadrants. NEUROLOGICAL: Patient is alert and oriented 3.5. This however slightly improved from yesterday and was checked immediately after his shaking spell. Good motor function in bilateral upper and right lower extremity with guarding on the left lower extremity. SKIN: Dressing intact over left hip with no drainage or signs of inflammation. LABORATORY DATA: Reviewed. Please see below. MICROBIOLOGY: Please see below. IMAGING: No new images today. DVT prophylaxis ordered?: Coumadin with INR of 2.40 and target of 1.7-2.0. Coumadin held today. ASSESSMENT AND PLAN: 1. Rehabilitation of left hip fracture with hemiarthroplasty: Patient on posterior hip precautions and weightbearing as tolerated has started physical and occupational therapy and showing good initial efforts and increase in gaiting when observed in more physical therapy session. Overall patient is motivated and probably will achieve discharge to home goals abpit 10/27/16. Patient will need to be modified independent in ADLs and mobility as he lives alone. Will focus on good mechanics and posterior hip precautions and trying overtraining patient into doing these things consistently. 2. Hypertension: Elevated this morning at 164/62. Optical Laboratory Mechanic will adjust the antihypertensive as appropriate. 3. Delirium: Patient's orientation and cognition remains improved since my initial evaluation. We will continue to watch this and will treat as needed. TIME SPENT: Chart Review, examination and documentation require greater than 15 minutes. Allergies Coded Allergies: Beta Adrenergic Blockers (Verified Adverse Reaction, Severe, INTOLERANCE PER DR. GAMBOA, 10/06/16) Naproxen (Verified Adverse Reaction, Intermediate, ANXIETY, 10/06/16) Vital Signs Vital Signs Date Time Temp Pulse Resp B/P (MAP) Pulse Ox O2 Delivery O2 Flow Rate FiO2 10/15/16 09:13 164/62 10/15/16 05:59 99.3 81 16 97 Room Air Laboratory Data Labs 24H Laboratory Tests 2 10/15/16 06:18: Prothrombin Time 27.1H, Prothromb Time International Ratio 2.40 Current Medications Current Medications Current Medications Acetaminophen (Tylenol Tab) 650 mg Q6HP PRN PO PAIN OR FEVER Last administered on 10/15/16 09:58; Start 10/12/16 at 13:30; Stop 11/11/16 at 13:29 Atorvastatin Calcium (Lipitor) 40 mg QHS PO Last administered on 10/14/16 20: 02; Start 10/12/16 at 21:00; Stop 11/11/16 at 20:59 Irbesartan (Avapro) 150 mg DAILY PO Last administered on 10/15/16 09:13; Start 10/13/16 at 09:00; Stop 11/12/16 at 08:59 Magnesium Hydroxide (Milk Of Magnesia) 30 ml DAILYPRN PRN PO CONSTIPATION; Start 10/12/16 at 13:30; Stop 11/11/16 at 13:29 Multivitamins (Ocuvite(I-Brooke)) 1 tab DAILY PO Last administered on 10/15/16 09:13; Start 10/13/16 at 09:00; Stop 11/12/16 at 08:59 Nitroglycerin (Nitrostat (1/ 150)) 0.4 mg Q5MP PRN SL CHEST PAIN; Start at 13:30; Stop 11/11/16 at 13:29 Nystatin (Mycostatin) 5 ml TID SSP Last administered on 10/15/16 09:13; Start 10/12/16 at 16:00; Stop 10/21/16 at 23:55 Pantoprazole Sodium (Protonix) 40 mg DAILY PO Last administered on 10/15/16 09 :12; Start 10/13/16 at 09:00; Stop 11/12/16 at 08:59 Polyethylene Glycol (Miralax) 1 pkt DAILY PRN PO CONSTIPATION; Start 10/12/16 at 13:30; Stop 11/11/16 at 13:29 Senna/Docusate Sodium (Senokot S) 1 tab BID PO Last administered on 10/14/16 10:25; Start 10/12/16 at 21:00; Stop 10/15/16 at 09:10; Status DC Sertraline HCl (Zoloft) 50 mg DAILY PO Last administered on 10/15/16 09:13; Start 10/13/16 at 09:00; Stop 11/12/16 at 08:59 Simethicone (Mylicon) 80 mg QIDP PRN PO BLOATING; Start 10/12/16 at 13:30; Stop 11/11/16 at 13:29 Sodium Biphosphate/ Sodium Phosphate (Fleet Enema) 1 ea DAILYPRN PRN [place] CONSTIPATION; Start 10/12/16 at 13:30; Stop 11/11/16 at 13:29 Tamsulosin HCl (Flomax) 0.4 mg QHS PO Last administered on 10/14/16 20:02; Start 10/12/16 at 21:00; Stop 11/11/16 at 20:59 Tramadol HCl (Ultram) 50 mg Q4HP PRN PO MODERATE PAIN (PS 5-7); Start 10/12/16 at 13:30; Stop 10/19/16 at 13:29 VIDA LOPEZ MD Oct 15, 2016 12:06
[2016-10-15] MEDS: SENOKOT S TAB PO SCH (13:34)
[2016-10-15 14:00] VITALS: BP 109/55
[2016-10-15] MEDS ORDERED: WARFARIN SOD 3 MG TAB PO ONE (17:00)
[2016-10-15 20:00] VITALS: BP 120/77
[2016-10-15] MEDS: TAMSULOSIN 0.4 MG CAP PO SCH (20:50)
[2016-10-15] MEDS: ATORVASTATIN 20 MG TAB PO SCH (20:50)
[2016-10-16 06:00] VITALS: BP 128/60
[2016-10-16] MEDS: ACETAMINOPHEN TAB 650MG DOSE (2X325MG) PO PRN ×2 (06:14→16:39)
[2016-10-16 07:07] LABS: INR 1.83
[2016-10-16] MEDS: NYSTATIN 500,000 U/5 ML SUSP UDC SSP SCH ×3 (08:45→20:19)
[2016-10-16] MEDS: OCUVITE 1 TAB PO SCH (08:46)
[2016-10-16] MEDS: SERTRALINE HCL 50 MG TAB PO SCH (08:46)
[2016-10-16] MEDS: PANTOPRAZOLE 40MG TAB (PROTONIX) PO SCH (08:47)
[2016-10-16] MEDS: IRBESARTAN 150 MG TAB PO SCH (08:47)
[2016-10-16 14:00] VITALS: BP 100/52
[2016-10-16] MEDS ORDERED: WARFARIN SOD 2.5 MG TAB PO ONE (17:00)
[2016-10-16 20:00] VITALS: BP 140/58
[2016-10-16] MEDS: TAMSULOSIN 0.4 MG CAP PO SCH (20:19)
[2016-10-16] MEDS: ATORVASTATIN 20 MG TAB PO SCH (20:19)
[2016-10-17 06:00] VITALS: BP 135/62
[2016-10-17 06:50] LABS: INR 1.64
[2016-10-17 08:00] VITALS: BP 122/71
[2016-10-17] MEDS: SERTRALINE HCL 50 MG TAB PO SCH (08:33)
[2016-10-17] MEDS: PANTOPRAZOLE 40MG TAB (PROTONIX) PO SCH (08:33)
[2016-10-17] MEDS: ACETAMINOPHEN TAB 650MG DOSE (2X325MG) PO PRN (08:34)
[2016-10-17] MEDS: NYSTATIN 500,000 U/5 ML SUSP UDC SSP SCH ×3 (08:35→20:05)
[2016-10-17] MEDS: OCUVITE 1 TAB PO SCH (08:35)
[2016-10-17] MEDS: IRBESARTAN 150 MG TAB PO SCH (08:35)
[2016-10-17 14:00] VITALS: BP 132/60
[2016-10-17] MEDS ORDERED: WARFARIN SOD 4 MG TAB PO ONE (17:00)
[2016-10-17 20:00] VITALS: BP 137/65
[2016-10-17] MEDS: TAMSULOSIN 0.4 MG CAP PO SCH (20:05)
[2016-10-17] MEDS: ATORVASTATIN 20 MG TAB PO SCH (20:05)
[2016-10-18] MEDS: ACETAMINOPHEN TAB 650MG DOSE (2X325MG) PO PRN ×2 (05:20→13:48)
[2016-10-18 06:00] VITALS: BP 143/66
[2016-10-18 07:04] LABS: INR 2.1
[2016-10-18] MEDS: NYSTATIN 500,000 U/5 ML SUSP UDC SSP SCH ×3 (09:17→20:08)
[2016-10-18] MEDS: IRBESARTAN 150 MG TAB PO SCH (09:18)
[2016-10-18] MEDS: OCUVITE 1 TAB PO SCH (09:18)
[2016-10-18] MEDS: PANTOPRAZOLE 40MG TAB (PROTONIX) PO SCH (09:18)
[2016-10-18] MEDS: SERTRALINE HCL 50 MG TAB PO SCH (09:18)
--- NOTE | 2016-10-18 11:30 | IPNPDOC ---
Date Seen The patient was seen on 10/18/16. Progress Note HPI: 86year old M S/P left hip fracture status post hemiarthroplasty 10/07 as per orthopedics. Transferred to the care of [facility] Conteh 10/12/16. No acute medical complaints today, other than feeling tired. Has been OOB with therapy this AM. Feels like he is gaining strength. Denies any fevers, chills, Headache, Chest Pain, Shortness of breath, cough, palpitations, abdominal pain, N/V/D or changes in bowel or bladder habits. PMHx: CAD/stent 3 Hypertension Dyslipidemia GERD Anxiety Depression PSHX: Bilateral inguinal hernia repair Colonoscopy Cardiac stent 3 PE: GEN: 86yoM, appears stated age. Well-nourished, well developed. No acute distress. Alert and oriented x 3. Pleasant, interactive. HEENT: Normocephalic, atraumatic. Pupils are equal, round, and reactive to light. Extraocular movements are intact. No nystagmus appreciated. Sclera are nonicteric. Conjunctiva without injection. Nose midline. Nasal turbinates without bogginess. No facial asymmetry. Moist mucous membranes. Dentition fair. Pharynx pink and moist. Neck supple, trachea midline. No lymphadenopathy or thyromegaly appreciated. CHEST: Regular rate and rhythm, +S1, +S2 LUNGS: Clear to auscultation bilaterally. No wheezes, rales, or rhonchi. Breathing appears symmetric and easy. Patient is speaking in full sentences. No accessory muscle use. ABD: Round, soft, non-tender, non-distended. +Bowel sounds throughout. No rebound or guarding. No costovertebral angle tenderness. EXT: Pulses 2+ bilaterally dorsalis pedis and radial. No lower extremity edema appreciated. SKIN: Prue, dry, warm. Capillary refill <2sec. No rashes. NEURO: Alert and oriented x 3. Cranial nerves III-XII are intact. No focal deficits appreciated. A&P: 86year old M S/P left hip fracture status post hemiarthroplasty 10/07 as per orthopedics. Transferred to the care of [facility]WA Conteh 10/12/16. 1. Left hip fracture status post hemiarthroplasty 10/07/16 as per orthopedics. Management as per [facility] Vizcarra. PT/OT as per ARU. Pain control as per ARU. Bowel care as per ARU. DVT prophylaxis. Coumadin as per orthopedics. 2. CAD/stent. Patient remains on statin. Aspirin on hold. No beta nico secondary to allergy. 3. Hypertension. Continue irbesartan 150 mg by mouth daily. BP trend 100-143 systolic. Update CBC/CMP in AM. 4. Dyslipidemia. Continue Lipitor 40 mg daily. 5. GERD. Continue Protonix 40 mg daily. 6. Anxiety/depression. Continue sertraline. 7. Urinary retention. Continue Flomax. VS, I&O, 24H, [facility] Vital Signs/I&O Vital Signs Date Time Temp Pulse Resp B/P (MAP) Pulse Ox O2 Delivery O2 Flow Rate FiO2 10/18/16 09:18 143/66 10/18/16 06:00 99.1 78 18 96 Room Air I&O- Last 24 Hours up to 6 AM 10/18/16 06:00 Intake Total 840 ml Output Total 825 ml Balance 15 ml Laboratory Data 24H LABS Laboratory Tests 2 10/18/16 06:20: Prothrombin Time 24.3H, Prothromb Time International Ratio 2.10 Moni Hawkins Oct 18, 2016 11:30
--- NOTE | 2016-10-18 12:10 | IPNPDOC ---
Field Pipe Lines Supervisor Progress Note DATE OF SERVICE: 10/18/16 DATE OF ADMISSION: Oct 12, 2016 at 13:55 INPATIENT REHABILITATION ADMISSION DAY: #7 SUBJECTIVE: Patient is a 86-year-old white male with left hip fracture status post hemiarthroplasty from posterior lateral approach. Patient's course is been complicated by response anesthesia with delirium, mild anemia, some atelectasis and atherosclerotic cardiovascular disease including some hypertension. Patient seen in his room, where he is laying in bed wrapped up in his [place] [employer] blanket. Patient is currently without complaints though he does have a little bit of left hip pain. ALLERGIES: See Below MEDICATIONS: Reviewed, see below. OBJECTIVE: VITAL SIGNS: Please see below. PHYSICAL EXAMINATION: GENERAL: Short well-nourished well-developed elderly white male, who is in very mild musculoskeletal distress favoring his left hip. He was less anxious. HEENT: Normocephalic/atraumatic with no tongue biting. CARDIOVASCULAR: Regular rate and rhythm with normal S1-S2. 2/4 bilateral radial pulses. LUNGS: Good air movement with all vera clear to auscultation with no rales, wheezes or rhonchi appreciated. ABDOMEN: Benign, mildly obese, nontender with normal bowel sounds in all quadrants. NEUROLOGICAL: Patient is alert and oriented to person, place, general time and situation. Good motor function in bilateral upper and right lower extremity with guarding on the left lower extremity. SKIN: Dressing intact over left hip with no drainage or signs of inflammation. LABORATORY DATA: Reviewed. Please see below. MICROBIOLOGY: Please see below. IMAGING: No new images today. DVT prophylaxis ordered?: Coumadin with INR of 2.10 and target of 1.7-2.0. Coumadin held today by Ms. Cali. ASSESSMENT AND PLAN: 1. Rehabilitation of left hip fracture with hemiarthroplasty: Patient on posterior hip precautions and weightbearing as tolerated has started physical and occupational therapy and showing good initial efforts and increase in gaiting when observed in more physical therapy session. Overall patient is motivated and probably will require 7-10 days of musculoskeletal rehabilitation to achieve discharge to home goals. Patient will need to be modified independent in ADLs and mobility as he lives alone. We continue to focus on good mechanics and posterior hip precautions and trying overtraining patient into doing these things consistently so he will maintain safety at home. Rehab. Team Rounds: Nursing noting some sundowning and patient with problems with memory and learning new sequences. He is progressing in gaiting to 95 feet with FW Walker and giving good overall effort. 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 I will consult CLEANER WINDOW to do a Cognitive Assessment and Training. I have discussed the possible need for Aricept or Namenda. Case management reported that patient's daughter has discussed taking patient into her home. Hip Fracture Rehab. should meet D/C goals about 10/26/16, but apparent OBS may be a factor in placement. 2. Shaking spell: No recurrence. Likely panic attack when he was losing balance. Patient is slow to react to changes. 3. Anemia: This is mild with H&H last at 11.9 and 35.3%. We will continue to watch this. 4. Hypertension: Elevated this morning at 163/82. Oracle Software Engineer will adjust the antihypertensive as appropriate. 5. Renal: BUN is more elevated at 27 with normal creatinine of 0.83 which we will continue to watch. 6. Nutrition: Albumin has been stressed by the fracture and is currently 2.7. We will periodically check this in trying encourage good nutrition. 7. Delirium: Patient's orientation and cognition remains improved since my initial evaluation. We will continue to watch this and will treat as needed. TIME SPENT: Chart Review, examination and documentation require greater than 25 minutes. Allergies Coded Allergies: Beta Adrenergic Blockers (Verified Adverse Reaction, Severe, INTOLERANCE PER DR. GAMBOA, 10/06/16) Naproxen (Verified Adverse Reaction, Intermediate, ANXIETY, 10/06/16) Vital Signs Vital Signs Date Time Temp Pulse Resp B/P (MAP) Pulse Ox O2 Delivery O2 Flow Rate FiO2 10/18/16 09:18 143/66 10/18/16 06:00 99.1 78 18 96 Room Air Laboratory Data Labs 24H Laboratory Tests 2 10/18/16 06:20: Prothrombin Time 24.3H, Prothromb Time International Ratio 2.10 Current Medications Current Medications Current Medications Acetaminophen (Tylenol Tab) 650 mg Q6HP PRN PO PAIN OR FEVER Last administered on 10/18/16 05:20; Start 10/12/16 at 13:30; Stop 11/11/16 at 13:29 Atorvastatin Calcium (Lipitor) 40 mg QHS PO Last administered on 10/17/16 20: 05; Start 10/12/16 at 21:00; Stop 11/11/16 at 20:59 Irbesartan (Avapro) 150 mg DAILY PO Last administered on 10/18/16 09:18; Start 10/13/16 at 09:00; Stop 11/12/16 at 08:59 Magnesium Hydroxide (Milk Of Magnesia) 30 ml DAILYPRN PRN PO CONSTIPATION; Start 10/12/16 at 13:30; Stop 11/11/16 at 13:29 Multivitamins (Ocuvite(I-Brooke)) 1 tab DAILY PO Last administered on 10/18/16 09:18; Start 10/13/16 at 09:00; Stop 11/12/16 at 08:59 Nitroglycerin (Nitrostat (1/ 150)) 0.4 mg Q5MP PRN SL CHEST PAIN; Start at 13:30; Stop 11/11/16 at 13:29 Nystatin (Mycostatin) 5 ml TID SSP Last administered on 10/18/16 09:17; Start 10/12/16 at 16:00; Stop 10/21/16 at 23:55 Pantoprazole Sodium (Protonix) 40 mg DAILY PO Last administered on 10/18/16 09 :18; Start 10/13/16 at 09:00; Stop 11/12/16 at 08:59 Polyethylene Glycol (Miralax) 1 pkt DAILY PRN PO CONSTIPATION; Start 10/12/16 at 13:30; Stop 11/11/16 at 13:29 Senna/Docusate Sodium (Senokot S) 1 tab BID PO Last administered on 10/14/16 10:25; Start 10/12/16 at 21:00; Stop 10/15/16 at 09:10; Status DC Sertraline HCl (Zoloft) 50 mg DAILY PO Last administered on 10/18/16 09:18; Start 10/13/16 at 09:00; Stop 11/12/16 at 08:59 Simethicone (Mylicon) 80 mg QIDP PRN PO BLOATING; Start 10/12/16 at 13:30; Stop 11/11/16 at 13:29 Sodium Biphosphate/ Sodium Phosphate (Fleet Enema) 1 ea DAILYPRN PRN [place] CONSTIPATION; Start 10/12/16 at 13:30; Stop 11/11/16 at 13:29 Tamsulosin HCl (Flomax) 0.4 mg QHS PO Last administered on 10/17/16t 20:05; Start 10/12/16 at 21:00; Stop 11/11/16 at 20:59 Tramadol HCl (Ultram) 50 mg Q4HP PRN PO MODERATE PAIN (PS 5-7); Start 10/12/16 at 13:30; Stop 10/22/16 at 23:55 VIDA LOPEZ MD Oct 18, 2016 12:10
[2016-10-18 14:00] VITALS: BP 124/60
[2016-10-18 20:00] VITALS: BP 101/54
[2016-10-18] MEDS: TAMSULOSIN 0.4 MG CAP PO SCH (20:08)
[2016-10-18] MEDS: ATORVASTATIN 20 MG TAB PO SCH (20:08)
[2016-10-19 06:00] VITALS: BP 125/61
[2016-10-19 09:03] LABS: MEAN CORPUSCULAR HEMOGLOBIN 33.2 pg (27.0-33.0); MEAN CORPUSCULAR HGB CONC 34.2 g/dl (32.0-36.5); MEAN CORPUSCULAR VOLUME 97.2 fl (80.0-96.0); WHITE BLOOD COUNT 9.9 K/mm3 (4.0-10.0)
[2016-10-19] MEDS: OCUVITE 1 TAB PO SCH (09:30)
[2016-10-19] MEDS: PANTOPRAZOLE 40MG TAB (PROTONIX) PO SCH (09:30)
[2016-10-19] MEDS: NYSTATIN 500,000 U/5 ML SUSP UDC SSP SCH ×3 (09:30→20:10)
[2016-10-19] MEDS: SERTRALINE HCL 50 MG TAB PO SCH (09:30)
[2016-10-19] MEDS: IRBESARTAN 150 MG TAB PO SCH (09:30)
[2016-10-19 09:37] LABS: INR 2.11
--- NOTE | 2016-10-19 09:55 | IPNPDOC ---
[facility] Progress Note DATE OF SERVICE: 10/19/16 DATE OF ADMISSION: Oct 12, 2016 at 13:55 INPATIENT REHABILITATION ADMISSION DAY: #8 SUBJECTIVE: Patient is a 86-year-old white male with left hip fracture status post hemiarthroplasty from posterior lateral approach. Patient's course is been complicated by response anesthesia with delirium, mild anemia, some atelectasis and atherosclerotic cardiovascular disease including some hypertension. Patient seen in his room, where he is sitting up in a chair. Patient is currently without complaints though he does have a little bit of left hip pain. ALLERGIES: See Below MEDICATIONS: Reviewed, see below. OBJECTIVE: VITAL SIGNS: Please see below. PHYSICAL EXAMINATION: GENERAL: Short well-nourished well-developed elderly white male, who is in very mild musculoskeletal distress favoring his left hip. He was less anxious. HEENT: Normocephalic/atraumatic with mild thrush in center of tongue. CARDIOVASCULAR: Regular rate and rhythm with normal S1-S2. 2/4 bilateral radial pulses. LUNGS: Good air movement with all vera clear to auscultation with no rales, wheezes or rhonchi appreciated. ABDOMEN: Benign, mildly obese, nontender with normal bowel sounds in all quadrants. NEUROLOGICAL: Patient is alert and oriented to person, place, general time and situation; knowing place, why he is here and month, but off on date. Good motor function in bilateral upper and right lower extremity with guarding on the left lower extremity. SKIN: Dressing intact over left hip with no drainage or signs of inflammation. LABORATORY DATA: Reviewed. Please see below. MICROBIOLOGY: Please see below. IMAGING: No new images today. DVT prophylaxis ordered?: Coumadin with INR of 2.11 and target of 1.7-2.0. Ms. Cali will represcribe when appropriate. ASSESSMENT AND PLAN: 1. Rehabilitation of left hip fracture with hemiarthroplasty: Patient on posterior hip precautions and weightbearing as tolerated has started physical and occupational therapy and showing good initial efforts and increase in gaiting when observed in more physical therapy session. Patient will need to be modified independent in ADLs and mobility as he lives alone. We continue to focus on good mechanics and posterior hip precautions and trying overtraining patient into doing these things consistently so he will maintain safety at home. Anticipated D/C to home 10/26/16. 2. Delirium VS. OBS: Patient's orientation and cognition remains improved since my initial evaluation. POLYSOMNOGRAPHY TECHNOLOGIST assessment today shows a number of deficits that can be helped with therapy. Patient should have further w/u and consideration for medications such as Aricept and Namenda by his PCP Dr Wong after discharge from ARU. Currently, patient is oriented and understanding about his health care. His daughter, who is his HCPOA is interested in getting patient on DNR status. Patient currently not sure about that and expresses Full Code status. Family is coming in to talk to patient about that. 3. Anemia: This is mild with H&H last at 11.5 and 33.6%. Slow decline so we will continue to watch this. 4. Hypertension: Good this morning at 125/61. 5. Renal: BUN is more elevated at 25 with normal creatinine of 0.80 which we will continue to watch. 6. Nutrition: Albumin has been stressed by the fracture and is improved to 3.1. We will periodically check this in trying encourage good nutrition. 7. Elevated Temp: Likely atelectasis. Encourage Incentive Spirometry. Considering Nebulizer treatment if IS not effective alone. WBC 9.9 with minimal upward change. TIME SPENT: Chart Review, examination and documentation require greater than 25 minutes. Allergies Coded Allergies: Beta Adrenergic Blockers (Verified Adverse Reaction, Severe, INTOLERANCE PER DR. GAMBOA, 10/06/16) Naproxen (Verified Adverse Reaction, Intermediate, ANXIETY, 10/06/16) Vital Signs Vital Signs Date Time Temp Pulse Resp B/P (MAP) Pulse Ox O2 Delivery O2 Flow Rate FiO2 10/19/16 09:30 125/61 10/19/16 06:00 99.6 75 18 96 Room Air Laboratory Data CBC/BMP Laboratory Tests 10/19/16 08:43 Red Blood Count 3.45 L, Mean Corpuscular Volume 97.2 H, Mean Corpuscular Hemoglobin 33.2 H, Mean Corpuscular Hemoglobin Concent 34.2, Red Cell Distribution Width 13.0, Calcium Level 9.1, Aspartate Amino Transf (AST/SGOT) 35 , Alanine Aminotransferase (ALT/SGPT) 60, Alkaline Phosphatase 104, Total Bilirubin 1.1 H, Total Protein 6.1 L, Albumin 3.1 L Laboratory Tests 10/19/16 08:43 Red Blood Count 3.45 L, Mean Corpuscular Volume 97.2 H, Mean Corpuscular Hemoglobin 33.2 H, Mean Corpuscular Hemoglobin Concent 34.2, Red Cell Distribution Width 13.0 Labs 24H Laboratory Tests 2 10/19/16 08:43: Prothrombin Time 24.4H, Prothromb Time International Ratio 2.11 Current Medications Current Medications Current Medications Acetaminophen (Tylenol Tab) 650 mg Q6HP PRN PO PAIN OR FEVER Last administered on 10/18/16 13:48; Start 10/12/16 at 13:30; Stop 11/11/16 at 13:29 Atorvastatin Calcium (Lipitor) 40 mg QHS PO Last administered on 10/18/16 20: 08; Start 10/12/16 at 21:00; Stop 11/11/16 at 20:59 Irbesartan (Avapro) 150 mg DAILY PO Last administered on 10/19/16 09:30; Start 10/13/16 at 09:00; Stop 11/12/16 at 08:59 Magnesium Hydroxide (Milk Of Magnesia) 30 ml DAILYPRN PRN PO CONSTIPATION; Start 10/12/16 at 13:30; Stop 11/11/16 at 13:29 Multivitamins (Ocuvite(I-Brooke)) 1 tab DAILY PO Last administered on 10/19/16 09:30; Start 10/13/16 at 09:00; Stop 11/12/16 at 08:59 Nitroglycerin (Nitrostat (1/ 150)) 0.4 mg Q5MP PRN SL CHEST PAIN; Start at 13:30; Stop 11/11/16 at 13:29 Nystatin (Mycostatin) 5 ml TID SSP Last administered on 10/19/16 09:30; Start 10/12/16 at 16:00; Stop 10/21/16 at 23:55 Pantoprazole Sodium (Protonix) 40 mg DAILY PO Last administered on 10/19/16 09 :30; Start 10/13/16 at 09:00; Stop 11/12/16 at 08:59 Polyethylene Glycol (Miralax) 1 pkt DAILY PRN PO CONSTIPATION; Start 10/12/16 at 13:30; Stop 11/11/16 at 13:29 Senna/Docusate Sodium (Senokot S) 1 tab BID PO Last administered on 10/14/16 10:25; Start 10/12/16 at 21:00; Stop 10/15/16 at 09:10; Status DC Sertraline HCl (Zoloft) 50 mg DAILY PO Last administered on 10/19/16 09:30; Start 10/13/16 at 09:00; Stop 11/12/16 at 08:59 Simethicone (Mylicon) 80 mg QIDP PRN PO BLOATING; Start 10/12/16 at 13:30; Stop 11/11/16 at 13:29 Sodium Biphosphate/ Sodium Phosphate (Fleet Enema) 1 ea DAILYPRN PRN DE CONSTIPATION; Start 10/12/16 at 13:30; Stop 11/11/16 at 13:29 Tamsulosin HCl (Flomax) 0.4 mg QHS PO Last administered on 10/18/16 20:08; Start 10/12/16 at 21:00; Stop 11/11/16 at 20:59 Tramadol HCl (Ultram) 50 mg Q4HP PRN PO MODERATE PAIN (PS 5-7); Start 10/12/16 at 13:30; Stop 10/22/16 at 23:55 VIDA LOPEZ MD Oct 19, 2016 09:55
[2016-10-19 09:59] LABS: ALBUMIN 3.1 GM/DL (3.2-5.2); ALBUMIN/GLOBULIN RATIO 1.03 (1.00-1.93); ALKALINE PHOSPHATASE 104 U/L (45-117); ALT/SGPT 60 U/L (12-78); ANION GAP 8 MEQ/L (8-16); AST/SGOT 35 U/L (15-37); BILIRUBIN,TOTAL 1.1 MG/DL (0.2-1.0); BLOOD UREA NITROGEN 25 MG/DL (7-18); CALCIUM LEVEL 9.1 MG/DL (8.8-10.2); CARBON DIOXIDE LEVEL 24 MEQ/L (21-32); CHLORIDE LEVEL 104 MEQ/L (98-107); GLOMERULAR FILTRATION RATE > 60.0 (>35); GLUCOSE, FASTING 116 MG/DL (83-110); SODIUM LEVEL 136 MEQ/L (136-145); TOTAL PROTEIN 6.1 GM/DL (6.4-8.2)
[2016-10-19] MEDS: ACETAMINOPHEN TAB 650MG DOSE (2X325MG) PO PRN (13:51)
[2016-10-19 14:00] VITALS: BP 134/58
[2016-10-19 20:00] VITALS: BP 151/66
[2016-10-19] MEDS: ATORVASTATIN 20 MG TAB PO SCH (20:10)
[2016-10-19] MEDS: TAMSULOSIN 0.4 MG CAP PO SCH (20:10)
[2016-10-20] MEDS: ACETAMINOPHEN TAB 650MG DOSE (2X325MG) PO PRN ×2 (05:40→11:47)
[2016-10-20 06:00] VITALS: BP 125/60
[2016-10-20 06:56] LABS: INR 1.67
[2016-10-20] MEDS: SERTRALINE HCL 50 MG TAB PO SCH (08:56)
[2016-10-20] MEDS: PANTOPRAZOLE 40MG TAB (PROTONIX) PO SCH (08:56)
[2016-10-20] MEDS: OCUVITE 1 TAB PO SCH (08:56)
[2016-10-20] MEDS: IRBESARTAN 150 MG TAB PO SCH (09:00)
[2016-10-20] MEDS: NYSTATIN 500,000 U/5 ML SUSP UDC SSP SCH ×3 (09:01→20:19)
[2016-10-20 09:26] VITALS: BP 106/56
--- NOTE | 2016-10-20 09:30 | IPNPDOC ---
[facility] Progress Note DATE OF SERVICE: 10/20/16 DATE OF ADMISSION: Oct 12, 2016 at 13:55 INPATIENT REHABILITATION ADMISSION DAY: #9 SUBJECTIVE: Patient is a 86-year-old white male with left hip fracture status post hemiarthroplasty from posterior lateral approach. Patient's course is been complicated by response anesthesia with delirium, mild anemia, some atelectasis and atherosclerotic cardiovascular disease including some hypertension. Patient seen in his room, where he is sitting up in a chair. Patient is currently without complaints though he does have a little bit of left hip pain. ALLERGIES: See Below MEDICATIONS: Reviewed, see below. OBJECTIVE: VITAL SIGNS: Please see below. PHYSICAL EXAMINATION: GENERAL: Short well-nourished well-developed elderly white male, who is in very mild musculoskeletal distress favoring his left hip. He was less anxious. HEENT: Normocephalic/atraumatic with mild thrush in center of tongue, but less daily. CARDIOVASCULAR: Regular rate and rhythm with normal S1-S2. LUNGS: Good air movement with all vera clear to auscultation with no rales, wheezes or rhonchi appreciated. ABDOMEN: Benign, mildly obese, nontender with normal bowel sounds in all quadrants. NEUROLOGICAL: Patient is alert and well oriented. Good motor function in bilateral upper and right lower extremity with guarding on the left lower extremity. SKIN: Dressing intact over left hip with no drainage or signs of inflammation. LABORATORY DATA: Reviewed. Please see below. MICROBIOLOGY: Please see below. IMAGING: No new images today. DVT prophylaxis ordered?: Coumadin with INR of 1.67 and target of 1.7-2.0. Ms. Cali ordered dose for tonight. ASSESSMENT AND PLAN: 1. Rehabilitation of left hip fracture with hemiarthroplasty: Patient on posterior hip precautions and weightbearing as tolerated has started physical and occupational therapy and showing good initial efforts and increase in gaiting when observed in more physical therapy session. Patient will need to be modified independent in ADLs and mobility as he lives alone. We continue to focus on good mechanics and posterior hip precautions and trying overtraining patient into doing these things consistently so he will maintain safety at home. OT noted some improved compliance and awareness this morning. Anticipated D/C to home 10/26/16. 2. Delirium VS. OBS: Patient's orientation and cognition remains improved since my initial evaluation. RETAIL INTERIOR DESIGNER assessment Tuesday shows a number of deficits that can be helped with therapy. Patient should have further w/u and consideration for medications such as Aricept and Namenda by his PCP Dr Wong after discharge from ARU. 3. Anemia: This is mild with H&H yesterday at 11.5 and 33.6%. Slow decline so we will continue to watch this. 4. Hypertension: Good this morning at 125/60, now SBP at time for 9am Avapro was 110. 5. Renal: BUN is more elevated at 25 with normal creatinine of 0.80 which we will continue to watch. 6. Nutrition: Albumin has been stressed by the fracture and is improved to 3.1. We will periodically check this in trying encourage good nutrition. 7. Elevated Temp: Clear for 24 hours. 8. Thrush: Improving, we will need to continue treatment into next week. TIME SPENT: Chart Review, examination and documentation require greater than 25 minutes. Allergies Coded Allergies: Beta Adrenergic Blockers (Verified Adverse Reaction, Severe, INTOLERANCE PER DR. GAMBOA, 10/06/16) Naproxen (Verified Adverse Reaction, Intermediate, ANXIETY, 10/06/16) Vital Signs Vital Signs Date Time Temp Pulse Resp B/P (MAP) Pulse Ox O2 Delivery O2 Flow Rate FiO2 10/20/16 06:00 98.7 82 18 125/60 (81) 95 Room Air Laboratory Data Labs 24H Laboratory Tests 2 10/20/16 06:37: Prothrombin Time 20.2H, Prothromb Time International Ratio 1.67 Current Medications Current Medications Current Medications Acetaminophen (Tylenol Tab) 650 mg Q6HP PRN PO PAIN OR FEVER Last administered on 10/20/16 05:40; Start 10/12/16 at 13:30; Stop 11/11/16 at 13:29 Atorvastatin Calcium (Lipitor) 40 mg QHS PO Last administered on 10/19/16 20: 10; Start 10/12/16 at 21:00; Stop 11/11/16 at 20:59 Irbesartan (Avapro) 150 mg DAILY PO Last administered on 10/19/16 09:30; Start 10/13/16 at 09:00; Stop 11/12/16 at 08:59 Magnesium Hydroxide (Milk Of Magnesia) 30 ml DAILYPRN PRN PO CONSTIPATION; Start 10/12/16 at 13:30; Stop 11/11/16 at 13:29 Multivitamins (Ocuvite(I-Brooke)) 1 tab DAILY PO Last administered on 10/20/16 08:56; Start 10/13/16 at 09:00; Stop 11/12/16 at 08:59 Nitroglycerin (Nitrostat (1/ 150)) 0.4 mg Q5MP PRN SL CHEST PAIN; Start at 13:30; Stop 11/11/16 at 13:29 Nystatin (Mycostatin) 5 ml TID SSP Last administered on 10/20/16 09:01; Start 10/12/16 at 16:00; Stop 10/21/16 at 23:55 Pantoprazole Sodium (Protonix) 40 mg DAILY PO Last administered on 10/20/16 08 :56; Start 10/13/16 at 09:00; Stop 11/12/16 at 08:59 Polyethylene Glycol (Miralax) 1 pkt DAILY PRN PO CONSTIPATION; Start 10/12/16 at 13:30; Stop 11/11/16 at 13:29 Senna/Docusate Sodium (Senokot S) 1 tab BID PO Last administered on 10/14/16 10:25; Start 10/12/16 at 21:00; Stop 10/15/16 at 09:10; Status DC Sertraline HCl (Zoloft) 50 mg DAILY PO Last administered on 10/20/16 08:56; Start 10/13/16 at 09:00; Stop 11/12/16 at 08:59 Simethicone (Mylicon) 80 mg QIDP PRN PO BLOATING; Start 10/12/16 at 13:30; Stop 11/11/16 at 13:29 Sodium Biphosphate/ Sodium Phosphate (Fleet Enema) 1 ea DAILYPRN PRN RI CONSTIPATION; Start 10/12/16 at 13:30; Stop 11/11/16 at 13:29 Tamsulosin HCl (Flomax) 0.4 mg QHS PO Last administered on 10/19/16 20:10; Start 10/12/16 at 21:00; Stop 11/11/16 at 20:59 Tramadol HCl (Ultram) 50 mg Q4HP PRN PO MODERATE PAIN (PS 5-7); Start 10/12/16 at 13:30; Stop 10/26/16 at 23:55 VIDA LOPEZ MD Oct 20, 2016 09:30
[2016-10-20 10:10] VITALS: BP 111/56
[2016-10-20 13:47] VITALS: BP 129/60
[2016-10-20] MEDS ORDERED: WARFARIN SOD 2 MG TAB PO ONE (17:00)
[2016-10-20 18:11] VITALS: BP 129/59
[2016-10-20 20:00] VITALS: BP 138/64
[2016-10-20] MEDS: TAMSULOSIN 0.4 MG CAP PO SCH (20:19)
[2016-10-20] MEDS: ATORVASTATIN 20 MG TAB PO SCH (20:19)
[2016-10-21 06:00] VITALS: BP 111/56
[2016-10-21 06:59] LABS: INR 1.44
[2016-10-21] MEDS ORDERED: ENOXAPARIN 40 MG/0.4 ML SYRINGE (J1650) SC ONE (08:00)
[2016-10-21] MEDS: NYSTATIN 500,000 U/5 ML SUSP UDC SSP SCH ×3 (08:27→21:05)
[2016-10-21] MEDS: SERTRALINE HCL 50 MG TAB PO SCH (08:27)
[2016-10-21] MEDS: PANTOPRAZOLE 40MG TAB (PROTONIX) PO SCH (08:27)
[2016-10-21] MEDS: OCUVITE 1 TAB PO SCH (08:29)
[2016-10-21] MEDS: IRBESARTAN 150 MG TAB PO SCH (08:35)
--- NOTE | 2016-10-21 09:37 | IPNPDOC ---
[facility] Progress Note DATE OF SERVICE: 10/21/16 DATE OF ADMISSION: Oct 12, 2016 at 13:55 INPATIENT REHABILITATION ADMISSION DAY: #10 SUBJECTIVE: Patient is a 86-year-old white male with left hip fracture status post hemiarthroplasty from posterior lateral approach. Patient's course is been complicated by response anesthesia with delirium, mild anemia, some atelectasis and atherosclerotic cardiovascular disease including some hypertension. Patient seen in his room, where he is sitting up in a chair. Patient is currently without complaints though he does have a little bit of left hip pain. ALLERGIES: See Below MEDICATIONS: Reviewed, see below. OBJECTIVE: VITAL SIGNS: Please see below. PHYSICAL EXAMINATION: GENERAL: Short well-nourished well-developed elderly white male, who is in very mild musculoskeletal distress favoring his left hip. He was less anxious and in good spirits. HEENT: Normocephalic/atraumatic with mild thrush in center of tongue, but less daily. CARDIOVASCULAR: Regular rate and rhythm with normal S1-S2. 2/4 bilateral radial pulses. LUNGS: Good air movement with all vera clear to auscultation with no rales, wheezes or rhonchi appreciated. ABDOMEN: Benign, mildly obese, nontender with normal bowel sounds in all quadrants. NEUROLOGICAL: Patient is alert and well oriented. Good motor function in bilateral upper and right lower extremity with guarding on the left lower extremity. SKIN: Dressing intact over left hip with no drainage or signs of inflammation. LABORATORY DATA: Reviewed. Please see below. MICROBIOLOGY: Please see below. IMAGING: No new images today. DVT prophylaxis ordered?: Coumadin with INR of 1.44 and target of 1.7-2.0. Ms. Cali ordered dose for tonight and Lovenox bridge. ASSESSMENT AND PLAN: 1. Rehabilitation of left hip fracture with hemiarthroplasty: Patient on posterior hip precautions and weightbearing as tolerated has started physical and occupational therapy and showing good initial efforts and increase in gaiting when observed in more physical therapy session. Patient will need to be modified independent in ADLs and mobility as he lives alone. We continue to focus on good mechanics and posterior hip precautions and trying overtraining patient into doing these things consistently so he will maintain safety at home. Patient Gaiting >90 feet with FWWalker and improved carryover of techniques. Anticipated D/C to home 10/26/16. 2. Delirium VS. OBS: Patient's orientation and cognition remains improved since my initial evaluation. SERVICE DESK AGENT assessment Tuesday shows a number of deficits that can be helped with therapy. Patient should have further w/u and consideration for medications such as Aricept and Namenda by his PCP Dr Wong after discharge from ARU. 3. Anemia: This is mild with H&H at 11.5 and 33.6% on 10/19. Slow decline so we will continue to watch this. 4. Hypertension: Good this morning at 111/56, now SBP. 5. Renal: BUN is more elevated at 25 on 10/19. We will watch. 6. Nutrition: Albumin has been stressed by the fracture and is improved to 3.1 on 10/19. We will periodically check this in trying encourage good nutrition. 7. Elevated Temp: 99.6 need to do more Incentive Spirometry. 8. Thrush: Improving, we will need to continue treatment into next week. TIME SPENT: Chart Review, examination and documentation require greater than 25 minutes. Allergies Coded Allergies: Beta Adrenergic Blockers (Verified Adverse Reaction, Severe, INTOLERANCE PER DR. GAMBOA, 10/06/16) Naproxen (Verified Adverse Reaction, Intermediate, ANXIETY, 10/06/16) Vital Signs Vital Signs Date Time Temp Pulse Resp B/P (MAP) Pulse Ox O2 Delivery O2 Flow Rate FiO2 10/21/16 06:00 99.7 72 16 111/56 (74) 96 Room Air Laboratory Data Labs 24H Laboratory Tests 2 10/21/16 06:21: Prothrombin Time 17.9H, Prothromb Time International Ratio 1.44 Current Medications Current Medications Current Medications Acetaminophen (Tylenol Tab) 650 mg Q6HP PRN PO PAIN OR FEVER Last administered on 10/20/16 11:47; Start 10/12/16 at 13:30; Stop 11/11/16 at 13:29 Atorvastatin Calcium (Lipitor) 40 mg QHS PO Last administered on 10/20/16 20: 19; Start 10/12/16 at 21:00; Stop 11/11/16 at 20:59 Irbesartan (Avapro) 150 mg DAILY PO Last administered on 10/19/16 09:30; Start 10/13/16 at 09:00; Stop 11/12/16 at 08:59 Magnesium Hydroxide (Milk Of Magnesia) 30 ml DAILYPRN PRN PO CONSTIPATION; Start 10/12/16 at 13:30; Stop 11/11/16 at 13:29 Multivitamins (Ocuvite(I-Brooke)) 1 tab DAILY PO Last administered on 10/20/16 08:56; Start 10/13/16 at 09:00; Stop 11/12/16 at 08:59 Nitroglycerin (Nitrostat (1/ 150)) 0.4 mg Q5MP PRN SL CHEST PAIN; Start at 13:30; Stop 11/11/16 at 13:29 Nystatin (Mycostatin) 5 ml TID SSP Last administered on 10/20/16 20:19; Start 10/12/16 at 16:00; Stop 10/27/16 at 23:55 Pantoprazole Sodium (Protonix) 40 mg DAILY PO Last administered on 10/20/16 08 :56; Start 10/13/16 at 09:00; Stop 11/12/16 at 08:59 Polyethylene Glycol (Miralax) 1 pkt DAILY PRN PO CONSTIPATION; Start 10/12/16 at 13:30; Stop 11/11/16 at 13:29 Senna/Docusate Sodium (Senokot S) 1 tab BID PO Last administered on 10/14/16 10:25; Start 10/12/16 at 21:00; Stop 10/15/16 at 09:10; Status DC Sertraline HCl (Zoloft) 50 mg DAILY PO Last administered on 10/20/16 08:56; Start 10/13/16 at 09:00; Stop 11/12/16 at 08:59 Simethicone (Mylicon) 80 mg QIDP PRN PO BLOATING; Start 10/12/16 at 13:30; Stop 11/11/16 at 13:29 Sodium Biphosphate/ Sodium Phosphate (Fleet Enema) 1 ea DAILYPRN PRN [place] CONSTIPATION; Start 10/12/16 at 13:30; Stop 11/11/16 at 13:29 Tamsulosin HCl (Flomax) 0.4 mg QHS PO Last administered on 10/20/16 20:19; Start 10/12/16 at 21:00; Stop 11/11/16 at 20:59 Tramadol HCl (Ultram) 50 mg Q4HP PRN PO MODERATE PAIN (PS 5-7); Start 10/12/16 at 13:30; Stop 10/26/16 at 23:55 VIDA LOPEZ MD Oct 21, 2016 09:37
[2016-10-21 14:00] VITALS: BP 115/58
[2016-10-21] MEDS ORDERED: WARFARIN SOD 4 MG TAB PO ONE (17:00)
[2016-10-21 20:00] VITALS: BP 132/63
[2016-10-21] MEDS: TAMSULOSIN 0.4 MG CAP PO SCH (21:06)
[2016-10-21] MEDS: ATORVASTATIN 20 MG TAB PO SCH (21:06)
[2016-10-22 06:00] VITALS: BP 131/63
[2016-10-22 07:11] LABS: INR 1.61
[2016-10-22] MEDS: PANTOPRAZOLE 40MG TAB (PROTONIX) PO SCH (08:49)
[2016-10-22] MEDS: IRBESARTAN 150 MG TAB PO SCH (08:49)
[2016-10-22] MEDS: NYSTATIN 500,000 U/5 ML SUSP UDC SSP SCH ×3 (08:49→20:46)
[2016-10-22] MEDS: OCUVITE 1 TAB PO SCH (08:49)
[2016-10-22] MEDS: SERTRALINE HCL 50 MG TAB PO SCH (08:49)
--- NOTE | 2016-10-22 11:26 | IPNPDOC ---
[employer] And [employer] Coordinator Progress Note DATE OF SERVICE: 10/22/16 DATE OF ADMISSION: Oct 12, 2016 at 13:55 INPATIENT REHABILITATION ADMISSION DAY: #11 SUBJECTIVE: Patient is a 86-year-old white male with left hip fracture status post hemiarthroplasty from posterior lateral approach. Patient's course is been complicated by response anesthesia with delirium, mild anemia, some atelectasis and atherosclerotic cardiovascular disease including some hypertension. Patient seen in hallway walking with FWW back from gym with PT supervising him. Patient is currently without complaints though he does have a little bit of left hip pain. ALLERGIES: See Below MEDICATIONS: Reviewed, see below. OBJECTIVE: VITAL SIGNS: Please see below. PHYSICAL EXAMINATION: GENERAL: Short well-nourished well-developed elderly white male, who is in very mild musculoskeletal distress favoring his left hip. He is in good spirits. HEENT: Normocephalic/atraumatic with mild thrush in center of tongue, but less daily. CARDIOVASCULAR: Regular rate and rhythm with normal S1-S2. 2/4 bilateral radial pulses. LUNGS: Good air movement with all vera clear to auscultation with no rales, wheezes or rhonchi appreciated. ABDOMEN: Benign, mildly obese, nontender with normal bowel sounds in all quadrants. NEUROLOGICAL: Patient is alert and well oriented to person, place, situation, and time. Good motor function in bilateral upper and right lower extremity with guarding on the left lower extremity. SKIN: Dressing intact over left hip with no drainage or signs of inflammation. LABORATORY DATA: Reviewed. Please see below. MICROBIOLOGY: Please see below. IMAGING: No new images today. DVT prophylaxis ordered?: Coumadin with INR of 1.61 and target of 1.7-2.0. Ms. Cali ordered dose for tonight. ASSESSMENT AND PLAN: 1. Rehabilitation of left hip fracture with hemiarthroplasty: Patient on posterior hip precautions and weightbearing as tolerated has started physical and occupational therapy and showing good initial efforts and increase in gaiting when observed in more physical therapy session. Patient will need to be modified independent in ADLs and mobility as he lives alone. We continue to focus on good mechanics and posterior hip precautions and trying overtraining patient into doing these things consistently so he will maintain safety at home. Patient Gaiting >110 feet with FWWalker and improved carryover of techniques. Anticipated D/C to home 10/26/16. 2. Delirium VS. OBS: Patient's orientation and cognition remains improved since my initial evaluation. 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 Patient should have further w/u and consideration for medications such as Aricept and Namenda by his PCP Dr Wong after discharge from ARU. 3. Anemia: This is mild with H&H at 11.5 and 33.6% on 10/19. Slow decline so we will continue to watch this. 4. Hypertension: Fair this morning at 131/63. 5. Renal: BUN is more elevated at 25 on 10/19. We will watch. 6. Nutrition: Albumin has been stressed by the fracture and is improved to 3.1 on 10/19. We will periodically check this in trying encourage good nutrition. 7. Elevated Temp: 99.5F earlier, now 99.0F, so we need to continue with more Incentive Spirometry. 8. Thrush: Improving, we will need to continue treatment into next week. TIME SPENT: Chart Review, examination and documentation require greater than 25 minutes. Allergies Coded Allergies: Beta Adrenergic Blockers (Verified Adverse Reaction, Severe, INTOLERANCE PER DR. GAMBOA, 10/06/16) Naproxen (Verified Adverse Reaction, Intermediate, ANXIETY, 10/06/16) Vital Signs Vital Signs Date Time Temp Pulse Resp B/P (MAP) Pulse Ox O2 Delivery O2 Flow Rate FiO2 10/22/16 09:00 Room Air 10/22/16 08:49 131/63 10/22/16 06:00 99.0 73 18 96 Laboratory Data Labs 24H Laboratory Tests 2 10/22/16 06:24: Prothrombin Time 19.6H, Prothromb Time International Ratio 1.61 Current Medications Current Medications Current Medications Acetaminophen (Tylenol Tab) 650 mg Q6HP PRN PO PAIN OR FEVER Last administered on 10/20/16 11:47; Start 10/12/16 at 13:30; Stop 11/11/16 at 13:29 Atorvastatin Calcium (Lipitor) 40 mg QHS PO Last administered on 10/21/16 21: 06; Start 10/12/16 at 21:00; Stop 11/11/16 at 20:59 Irbesartan (Avapro) 150 mg DAILY PO Last administered on 10/22/16 08:49; Start 10/13/16 at 09:00; Stop 11/12/16 at 08:59 Magnesium Hydroxide (Milk Of Magnesia) 30 ml DAILYPRN PRN PO CONSTIPATION; Start 10/12/16 at 13:30; Stop 11/11/16 at 13:29 Multivitamins (Ocuvite(I-Brooke)) 1 tab DAILY PO Last administered on 10/22/16 08:49; Start 10/13/16 at 09:00; Stop 11/12/16 at 08:59 Nitroglycerin (Nitrostat (1/ 150)) 0.4 mg Q5MP PRN SL CHEST PAIN; Start at 13:30; Stop 11/11/16 at 13:29 Nystatin (Mycostatin) 5 ml TID SSP Last administered on 10/22/16 08:49; Start 10/12/16 at 16:00; Stop 10/27/16 at 23:55 Pantoprazole Sodium (Protonix) 40 mg DAILY PO Last administered on 10/22/16 08 :49; Start 10/13/16 at 09:00; Stop 11/12/16 at 08:59 Polyethylene Glycol (Miralax) 1 pkt DAILY PRN PO CONSTIPATION; Start 10/12/16 at 13:30; Stop 11/11/16 at 13:29 Senna/Docusate Sodium (Senokot S) 1 tab BID PO Last administered on 10/14/16 10:25; Start 10/12/16 at 21:00; Stop 10/15/16 at 09:10; Status DC Sertraline HCl (Zoloft) 50 mg DAILY PO Last administered on 10/22/16 08:49; Start 10/13/16 at 09:00; Stop 11/12/16 at 08:59 Simethicone (Mylicon) 80 mg QIDP PRN PO BLOATING; Start 10/12/16 at 13:30; Stop 11/11/16 at 13:29 Sodium Biphosphate/ Sodium Phosphate (Fleet Enema) 1 ea DAILYPRN PRN [place] CONSTIPATION; Start 10/12/16 at 13:30; Stop 11/11/16 at 13:29 Tamsulosin HCl (Flomax) 0.4 mg QHS PO Last administered on 10/21/16 21:06; Start 7/18/17 at 21:00; Stop 11/11/16 at 20:59 Tramadol HCl (Ultram) 50 mg Q4HP PRN PO MODERATE PAIN (PS 5-7); Start 10/12/16 at 13:30; Stop 10/26/16 at 23:55 VDIA LOPEZ MD Oct 22, 2016 11:26
[2016-10-22 14:00] VITALS: BP 115/57
[2016-10-22] MEDS: ACETAMINOPHEN TAB 650MG DOSE (2X325MG) PO PRN (14:56)
[2016-10-22] MEDS ORDERED: WARFARIN SOD 5 MG TAB PO ONE (17:00)
[2016-10-22 20:00] VITALS: BP 150/71
[2016-10-22] MEDS: ATORVASTATIN 20 MG TAB PO SCH (20:46)
[2016-10-22] MEDS: TAMSULOSIN 0.4 MG CAP PO SCH (20:46)
[2016-10-23 06:00] VITALS: BP 130/60
[2016-10-23] MEDS: NYSTATIN 500,000 U/5 ML SUSP UDC SSP SCH ×3 (09:10→21:25)
[2016-10-23] MEDS: OCUVITE 1 TAB PO SCH (09:10)
[2016-10-23] MEDS: PANTOPRAZOLE 40MG TAB (PROTONIX) PO SCH (09:10)
[2016-10-23] MEDS: SERTRALINE HCL 50 MG TAB PO SCH (09:10)
[2016-10-23] MEDS: IRBESARTAN 150 MG TAB PO SCH (09:11)
[2016-10-23 14:00] VITALS: BP 112/60
[2016-10-23] MEDS: ACETAMINOPHEN TAB 650MG DOSE (2X325MG) PO PRN ×2 (14:02→21:40)
[2016-10-23] MEDS ORDERED: WARFARIN SOD 5 MG TAB PO ONE (17:00)
[2016-10-23 20:00] VITALS: BP 141/63
[2016-10-23] MEDS: ATORVASTATIN 20 MG TAB PO SCH (21:25)
[2016-10-23] MEDS: TAMSULOSIN 0.4 MG CAP PO SCH (21:25)
[2016-10-24 06:00] VITALS: BP 137/63
[2016-10-24 06:35] LABS: INR 2.76
[2016-10-24] MEDS: NYSTATIN 500,000 U/5 ML SUSP UDC SSP SCH ×3 (08:31→20:35)
[2016-10-24] MEDS: PANTOPRAZOLE 40MG TAB (PROTONIX) PO SCH (08:41)
[2016-10-24] MEDS: IRBESARTAN 150 MG TAB PO SCH (08:41)
[2016-10-24] MEDS: OCUVITE 1 TAB PO SCH (08:42)
[2016-10-24] MEDS: SERTRALINE HCL 50 MG TAB PO SCH (08:42)
[2016-10-24 14:00] VITALS: BP 131/59
[2016-10-24 20:00] VITALS: BP 144/63
[2016-10-24] MEDS: ATORVASTATIN 20 MG TAB PO SCH (20:35)
[2016-10-24] MEDS: ACETAMINOPHEN TAB 650MG DOSE (2X325MG) PO PRN (20:35)
[2016-10-24] MEDS: TAMSULOSIN 0.4 MG CAP PO SCH (20:35)
[2016-10-25 05:51] VITALS: BP 144/65
[2016-10-25 06:14] LABS: INR 2.87
[2016-10-25] MEDS ORDERED: XARE10TA PO ×2 (08:44→08:53)
[2016-10-25] MEDS: NYSTATIN 500,000 U/5 ML SUSP UDC SSP SCH ×3 (09:19→20:29)
[2016-10-25] MEDS: PANTOPRAZOLE 40MG TAB (PROTONIX) PO SCH (09:19)
[2016-10-25] MEDS: OCUVITE 1 TAB PO SCH (09:19)
[2016-10-25] MEDS: SERTRALINE HCL 50 MG TAB PO SCH (09:20)
[2016-10-25] MEDS: IRBESARTAN 150 MG TAB PO SCH (09:20)
--- NOTE | 2016-10-25 09:22 | IPNPDOC ---
Special Client Bus Driver Progress Note DATE OF SERVICE: 10/25/16 DATE OF ADMISSION: Oct 12, 2016 at 13:55 INPATIENT REHABILITATION ADMISSION DAY: #14 SUBJECTIVE: Patient is a 86-year-old white male with left hip fracture status post hemiarthroplasty from posterior lateral approach. Patient's course is been complicated by response anesthesia with delirium, mild anemia, some atelectasis and atherosclerotic cardiovascular disease including some hypertension. Patient seen in hallway walking with FWW back from gym with PT supervising him. Patient is currently without complaints though he does have a little bit of left hip pain. ALLERGIES: See Below MEDICATIONS: Reviewed, see below. OBJECTIVE: VITAL SIGNS: Please see below. PHYSICAL EXAMINATION: GENERAL: Short well-nourished well-developed elderly white male, who is in very mild musculoskeletal distress favoring his left hip. He is in good spirits. HEENT: Normocephalic/atraumatic with mild thrush in center of tongue, but less daily. CARDIOVASCULAR: Regular rate and rhythm with normal S1-S2. 2/4 bilateral radial pulses. LUNGS: Good air movement with all vera clear to auscultation with no rales, wheezes or rhonchi appreciated. ABDOMEN: Benign, mildly obese, nontender with normal bowel sounds in all quadrants. NEUROLOGICAL: Patient is alert and well oriented to person, place, situation, and time. Good motor function in bilateral upper and right lower extremity with guarding on the left lower extremity. SKIN: Dressing intact over left hip with no drainage or signs of inflammation. LABORATORY DATA: Reviewed. Please see below. MICROBIOLOGY: Please see below. IMAGING: No new images today. DVT prophylaxis ordered?: Coumadin with INR of 2.87 and target of 1.7-2.0. No Coumadin today, yesterday or Tuesday. Levels should start to drop toward target range. ASSESSMENT AND PLAN: 1. Rehabilitation of left hip fracture with hemiarthroplasty: Patient on posterior hip precautions and weightbearing as tolerated has started physical and occupational therapy and showing good initial efforts and increase in gaiting when observed in more physical therapy session. Patient will need to be modified independent in ADLs and mobility as he lives alone. We continue to focus on good mechanics and posterior hip precautions and trying overtraining patient into doing these things consistently so he will maintain safety at home. Patient Gaiting >110 feet with FWWalker and improved carryover of techniques, but not walked in PT this weekend beyond 75 ft. Anticipated D/C to home 10/27/16. 2. Delirium VS. OBS: Patient's orientation and cognition remains improved since my initial evaluation. 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 Patient should have further w/u and consideration for medications such as Aricept and Namenda by his PCP Dr Wong after discharge from ARU. 3. Anemia: This is mild with H&H at 11.5 and 33.6% on 10/19. Slow decline, CBC tomorrow. 4. Hypertension: Fair this morning at 144/65. 5. Renal: BUN is more elevated at 25 on 10/19. Repeat CMP tomorrow. 6. Nutrition: Albumin has been stressed by the fracture and is improved to 3.1 on 10/19. CMP tomorrow. 7. Elevated Temp: 99.5F earlier, now 99.0F, so we need to continue with more Incentive Spirometry. 8. Thrush: Improving, we will need to continue treatment. TIME SPENT: Chart Review, examination and documentation require greater than 25 minutes. Allergies Coded Allergies: Beta Adrenergic Blockers (Verified Adverse Reaction, Severe, INTOLERANCE PER DR. GAMBOA, 10/06/16) Naproxen (Verified Adverse Reaction, Intermediate, ANXIETY, 10/06/16) Vital Signs Vital Signs Date Time Temp Pulse Resp B/P (MAP) Pulse Ox O2 Delivery O2 Flow Rate FiO2 10/25/16 05:51 98.8 69 20 144/65 (91) 97 Room Air Laboratory Data Labs 24H Laboratory Tests 2 10/25/16 05:41: Prothrombin Time 31.3H, Prothromb Time International Ratio 2.87 Current Medications Current Medications Current Medications Acetaminophen (Tylenol Tab) 650 mg Q6HP PRN PO PAIN OR FEVER Last administered on 10/24/16 20:35; Start 10/12/16 at 13:30; Stop 11/11/16 at 13:29 Atorvastatin Calcium (Lipitor) 40 mg QHS PO Last administered on 10/24/16 20: 35; Start 10/12/16 at 21:00; Stop 11/11/16 at 20:59 Irbesartan (Avapro) 150 mg DAILY PO Last administered on 10/24/16 08:41; Start 10/13/16 at 09:00; Stop 11/12/16 at 08:59 Magnesium Hydroxide (Milk Of Magnesia) 30 ml DAILYPRN PRN PO CONSTIPATION; Start 10/12/16 at 13:30; Stop 11/11/16 at 13:29 Multivitamins (Ocuvite(I-Brooke)) 1 tab DAILY PO Last administered on 10/24/16 08:42; Start 10/13/16 at 09:00; Stop 11/12/16 at 08:59 Nitroglycerin (Nitrostat (1/ 150)) 0.4 mg Q5MP PRN SL CHEST PAIN; Start at 13:30; Stop 11/11/16 at 13:29 Nystatin (Mycostatin) 5 ml TID SSP Last administered on 10/24/16 20:35; Start 10/12/16 at 16:00; Stop 10/27/16 at 23:55 Pantoprazole Sodium (Protonix) 40 mg DAILY PO Last administered on 10/24/16 08 :41; Start 10/13/16 at 09:00; Stop 11/12/16 at 08:59 Polyethylene Glycol (Miralax) 1 pkt DAILY PRN PO CONSTIPATION; Start 10/12/16 at 13:30; Stop 11/11/16 at 13:29 Senna/Docusate Sodium (Senokot S) 1 tab BID PO Last administered on 10/14/16 10:25; Start 10/12/16 at 21:00; Stop 10/15/16 at 09:10; Status DC Sertraline HCl (Zoloft) 50 mg DAILY PO Last administered on 10/24/16 08:42; Start 10/13/16 at 09:00; Stop 11/12/16 at 08:59 Simethicone (Mylicon) 80 mg QIDP PRN PO BLOATING; Start 10/12/16 at 13:30; Stop 11/11/16 at 13:29 Sodium Biphosphate/ Sodium Phosphate (Fleet Enema) 1 ea DAILYPRN PRN [place] CONSTIPATION; Start 10/12/16 at 13:30; Stop 11/11/16 at 13:29 Tamsulosin HCl (Flomax) 0.4 mg QHS PO Last administered on 10/24/16 20:35; Start 10/12/16 at 21:00; Stop 11/11/16 at 20:59 Tramadol HCl (Ultram) 50 mg Q4HP PRN PO MODERATE PAIN (PS 5-7); Start 10/12/16 at 13:30; Stop 10/26/16 at 23:55 VIDA LOPEZ MD Oct 25, 2016 09:22
[2016-10-25 13:41] VITALS: BP 114/56
[2016-10-25 20:00] VITALS: BP 122/60
[2016-10-25] MEDS: ATORVASTATIN 20 MG TAB PO SCH (20:28)
[2016-10-25] MEDS: ACETAMINOPHEN TAB 650MG DOSE (2X325MG) PO PRN (20:29)
[2016-10-25] MEDS: TAMSULOSIN 0.4 MG CAP PO SCH (20:29)
[2016-10-26 06:00] VITALS: BP 140/62
[2016-10-26] MEDS: SERTRALINE HCL 50 MG TAB PO SCH (08:47)
[2016-10-26] MEDS: OCUVITE 1 TAB PO SCH (08:47)
[2016-10-26] MEDS: PANTOPRAZOLE 40MG TAB (PROTONIX) PO SCH (08:47)
[2016-10-26] MEDS: IRBESARTAN 150 MG TAB PO SCH (08:48)
[2016-10-26] MEDS: NYSTATIN 500,000 U/5 ML SUSP UDC SSP SCH ×3 (08:48→20:11)
[2016-10-26 09:26] LABS: MEAN CORPUSCULAR HEMOGLOBIN 31.7 pg (27.0-33.0); MEAN CORPUSCULAR HGB CONC 32.6 g/dl (32.0-36.5); MEAN CORPUSCULAR VOLUME 97.3 fl (80.0-96.0); RED CELL DISTRIBUTION WIDTH 12.7 % (11.5-14.5); WHITE BLOOD COUNT 6.4 K/mm3 (4.0-10.0)
[2016-10-26 09:43] LABS: ALBUMIN 3.1 GM/DL (3.2-5.2); ALBUMIN/GLOBULIN RATIO 0.94 (1.00-1.93); ALKALINE PHOSPHATASE 108 U/L (45-117); ALT/SGPT 41 U/L (12-78); ANION GAP 11 MEQ/L (8-16); AST/SGOT 23 U/L (15-37); BILIRUBIN,TOTAL 1.1 MG/DL (0.2-1.0); BLOOD UREA NITROGEN 22 MG/DL (7-18); CALCIUM LEVEL 9.2 MG/DL (8.8-10.2); CARBON DIOXIDE LEVEL 25 MEQ/L (21-32); CHLORIDE LEVEL 106 MEQ/L (98-107); CREATININE FOR GFR 0.81 MG/DL (0.70-1.30); GLOMERULAR FILTRATION RATE > 60.0 (>35); GLUCOSE, FASTING 120 MG/DL (83-110); POTASSIUM SERUM 3.8 MEQ/L (3.5-5.1); SODIUM LEVEL 142 MEQ/L (136-145); TOTAL PROTEIN 6.4 GM/DL (6.4-8.2)
--- NOTE | 2016-10-26 10:55 | IPNPDOC ---
Front End Web Developer Progress Note DATE OF SERVICE: 10/26/16 DATE OF ADMISSION: Oct 12, 2016 at 13:55 INPATIENT REHABILITATION ADMISSION DAY: #15 SUBJECTIVE: Patient is a 86-year-old white male with left hip fracture status post hemiarthroplasty from posterior lateral approach. Patient's course is been complicated by response anesthesia with delirium, mild anemia, some atelectasis and atherosclerotic cardiovascular disease including some hypertension. Patient seen in his room sitting up for TIER OVER training. Patient is currently without complaints though he does have a little bit of left hip pain. ALLERGIES: See Below MEDICATIONS: Reviewed, see below. OBJECTIVE: VITAL SIGNS: Please see below. PHYSICAL EXAMINATION: GENERAL: Short well-nourished well-developed elderly white male, who is in very mild musculoskeletal distress favoring his left hip. He is in good spirits. HEENT: Normocephalic/atraumatic with very mild thrush in center of tongue, but less daily. CARDIOVASCULAR: Regular rate and rhythm with normal S1-S2. 2/4 bilateral radial pulses. LUNGS: Good air movement with all vera clear to auscultation. ABDOMEN: Benign, mildly obese, nontender with normal bowel sounds in all quadrants. NEUROLOGICAL: Patient is alert and well oriented to person, place, situation, and time. Good motor function in bilateral upper and right lower extremity with less guarding on the left lower extremity. SKIN: Dressing intact over left hip with no drainage or signs of inflammation. LABORATORY DATA: Reviewed. Please see below. MICROBIOLOGY: Please see below. IMAGING: No new images today. DVT prophylaxis ordered?: Coumadin with INR of 2.87 and target of 1.7-2.0. No Coumadin today, yesterday or Tuesday. Levels should start to drop toward target range. ASSESSMENT AND PLAN: 1. Rehabilitation of left hip fracture with hemiarthroplasty: Patient on posterior hip precautions and weightbearing as tolerated has started physical and occupational therapy and showing good initial efforts and increase in gaiting when observed in more physical therapy session. Patient will need to be modified independent in ADLs and mobility as he lives alone. We continue to focus on good mechanics and posterior hip precautions and trying overtraining patient into doing these things consistently so he will maintain safety at home. Patient Gaiting >110 feet with FWWalker and improved carryover of techniques, but not walked in PT this weekend beyond 75 ft. Anticipated D/C to home 10/27/16. 2. Delirium VS. OBS: Patient's orientation and cognition remains improved since my initial evaluation. TIER OVER assessment Tuesday shows a number of deficits that can be helped with therapy. Patient should have further w/u and consideration for medications such as Aricept and Namenda by his PCP Dr Wong after discharge from ARU. 3. Anemia: This is mild with H&H at 11.4 and 35.0% on 10/19. Overall stable. 4. Hypertension: Fair this morning at 144/62. 5. Renal: BUN is more elevated at 22 today down from last 25 on 10/19. 6. Nutrition: Albumin has been stressed by the fracture and is stable at 3.1 today. 7. Elevated Temp: 99.0F earlier, so we need to continue with more Incentive Spirometry. 8. Thrush: Improving, we will need to continue treatment for today, then stop for D/C. TIME SPENT: Chart Review, examination and documentation require greater than 25 minutes. Allergies Coded Allergies: Beta Adrenergic Blockers (Verified Adverse Reaction, Severe, INTOLERANCE PER DR. GAMBOA, 10/06/16) Naproxen (Verified Adverse Reaction, Intermediate, ANXIETY, 10/06/16) Vital Signs Vital Signs Date Time Temp Pulse Resp B/P (MAP) Pulse Ox O2 Delivery O2 Flow Rate FiO2 10/26/16 08:48 140/62 10/26/16 06:00 99.0 76 18 96 Room Air Laboratory Data CBC/BMP Laboratory Tests 10/26/16 08:59 Red Blood Count 3.60 L, Mean Corpuscular Volume 97.3 H, Mean Corpuscular Hemoglobin 31.7, Mean Corpuscular Hemoglobin Concent 32.6, Red Cell Distribution Width 12.7, Calcium Level 9.2, Aspartate Amino Transf (AST/SGOT) 23 , Alanine Aminotransferase (ALT/SGPT) 41, Alkaline Phosphatase 108, Total Bilirubin 1.1 H, Total Protein 6.4, Albumin 3.1 L Labs 24H Laboratory Tests 2 10/26/16 08:59: Anion Gap 11, Glomerular Filtration Rate > 60.0, Blood Urea Nitrogen 22H, Creatinine 0.81, Sodium Level 142, Potassium Level 3.8, Chloride Level 106, Carbon Dioxide Level 25, Calcium Level 9.2, Aspartate Amino Transf (AST/SGOT) 23 , Alanine Aminotransferase (ALT/SGPT) 41, Alkaline Phosphatase 108, Total Bilirubin 1.1H, Total Protein 6.4, Albumin 3.1L, Albumin/Globulin Ratio 0.94L Current Medications Current Medications Current Medications Acetaminophen (Tylenol Tab) 650 mg Q6HP PRN PO PAIN OR FEVER Last administered on 10/25/16 20:29; Start 10/12/16 at 13:30; Stop 11/11/16 at 13:29 Atorvastatin Calcium (Lipitor) 40 mg QHS PO Last administered on 10/25/16 20: 28; Start 10/12/16 at 21:00; Stop 11/11/16 at 20:59 Irbesartan (Avapro) 150 mg DAILY PO Last administered on 10/26/16 08:48; Start 10/13/16 at 09:00; Stop 11/12/16 at 08:59 Magnesium Hydroxide (Milk Of Magnesia) 30 ml DAILYPRN PRN PO CONSTIPATION; Start 10/12/16 at 13:30; Stop 11/11/16 at 13:29 Multivitamins (Ocuvite(I-Brooke)) 1 tab DAILY PO Last administered on 10/26/16 08 :47; Start 10/13/16 at 09:00; Stop 11/12/16 at 08:59 Nitroglycerin (Nitrostat (1/ 150)) 0.4 mg Q5MP PRN SL CHEST PAIN; Start at 13:30; Stop 11/11/16 at 13:29 Nystatin (Mycostatin) 5 ml TID SSP Last administered on 10/26/16 08:48; Start 10/12/16 at 16:00; Stop 10/27/16 at 23:55 Pantoprazole Sodium (Protonix) 40 mg DAILY PO Last administered on 10/26/16 08: 47; Start 10/13/16 at 09:00; Stop 11/12/16 at 08:59 Polyethylene Glycol (Miralax) 1 pkt DAILY PRN PO CONSTIPATION; Start 10/12/16 at 13:30; Stop 11/11/16 at 13:29; Status Cancel Senna/Docusate Sodium (Senokot S) 1 tab BID PO Last administered on 10/14/16 10:25; Start 10/12/16 at 21:00; Stop 10/15/16 at 09:10; Status DC Sertraline HCl (Zoloft) 50 mg DAILY PO Last administered on 10/26/16 08:47; Start 10/13/16 at 09:00; Stop 11/12/16 at 08:59 Simethicone (Mylicon) 80 mg QIDP PRN PO BLOATING; Start 10/12/16 at 13:30; Stop 11/11/16 at 13:29; Status Cancel Sodium Biphosphate/ Sodium Phosphate (Fleet Enema) 1 ea DAILYPRN PRN [place] CONSTIPATION; Start 10/12/16 at 13:30; Stop 11/11/16 at 13:29; Status Cancel Tamsulosin HCl (Flomax) 0.4 mg QHS PO Last administered on 10/25/16 20:29; Start 10/12/16 at 21:00; Stop 11/11/16 at 20:59 Tramadol HCl (Ultram) 50 mg Q4HP PRN PO MODERATE PAIN (PS 5-7); Start 10/12/16 at 13:30; Stop 10/26/16 at 23:55; Status Cancel VIDA LOPEZ MD Oct 26, 2016 10:55
[2016-10-26 14:00] VITALS: BP 138/63
[2016-10-26 20:00] VITALS: BP 134/61
[2016-10-26] MEDS: TAMSULOSIN 0.4 MG CAP PO SCH (20:11)
[2016-10-26] MEDS: ATORVASTATIN 20 MG TAB PO SCH (20:11)
[2016-10-27 06:00] VITALS: BP 138/65
[2016-10-27 07:08] LABS: INR 1.55
[2016-10-27 08:45] VITALS: BP 138/65
[2016-10-27] MEDS: OCUVITE 1 TAB PO SCH (08:45)
[2016-10-27] MEDS: SERTRALINE HCL 50 MG TAB PO SCH (08:45)
[2016-10-27] MEDS: IRBESARTAN 150 MG TAB PO SCH (08:45)
[2016-10-27] MEDS: PANTOPRAZOLE 40MG TAB (PROTONIX) PO SCH (08:45)
[2016-10-27] MEDS: NYSTATIN 500,000 U/5 ML SUSP UDC SSP SCH ×2 (08:45→15:00)
--- NOTE | 2016-10-28 16:13 | PMRDS ---
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 HISTORY: The patient is an 86-year-old right handed white male who was living independently and went out to dinner with his son, and while walking away from the restaurant, tripped and landed on his left hip sustaining a left femoral neck fracture on 10/06/2016 and was brought to [facility] for evaluation. He was found to have sustained a left hip fracture, and on 10/07/2016, Dr. Amauri Grullon performed a left hemiarthroplasty to treat the fracture. The patient was noted to have significant disorientation and confusion along with some hallucinations in his early postoperative course and this limited his ability to participate in therapy initially, but then this started to clear as he got farther away from the initial anesthesia and the patient's performance in therapy was improving. He was felt on 10/12/2016 to be ready for trial of musculoskeletal rehabilitation to try and return him to his prior level of function. PROCEDURES PERFORMED: On this admission are none. PAST MEDICAL HISTORY: Includes: 1. 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 2. Gastroesophageal reflux disease. 3. Anxiety and depression. PAST SURGICAL HISTORY: Includes: 1. Coronary artery stent placement times three. 2. Bilateral inguinal hernia repairs. 3. Status post multiple colonoscopies. DIAGNOSTIC LABORATORY DATA: Patient with mild anemia on admission to the rehabilitation unit. Hemoglobin and hematocrit were 12.8 and 37.6. They remain in the mild range currently with hemoglobin of 11.4 and hematocrit of 35. However, platelets have been elevating and are now 552,000. Comprehensive metabolic panel showed normal electrolytes on admission and at this time. However, BUN has remained elevated throughout admission, initially being 23, rising to 27, and now being 22. Creatinine, however, has been in the normal range. Fasting blood sugars have been fairly well-controlled with some elevation and yesterday morning was 120. The patient's total bilirubin was 1.9 on admission and has now declined to 1.1, nearly normal. The patient with mild elevation of AST on admission, now normal for all LFTs except the total bilirubin. The patient's albumin has climbed from 2.7 to 3.1 during the course of the admission. The patient was being maintained on Coumadin but due to cardiac status, medicine has decided to transition the patient to Xarelto here at discharge and he will be off Coumadin going forward. His INR this morning is 1.55. 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 However, the patient has been benefiting from speech/language training and is recommended to continue with home care following discharge. PHYSICAL THERAPY: The patient initially only ambulating about two feet, unable to do stairs with moderate assist and all bed transfers, sit to stand, stand to sit , and maximum assist for sit to supine and having difficulty with some elements of attention and training. However, he has made fairly steady improvement as he is weight-bear as tolerated and we have continued to use posterior hip precaution. He is now modified independent in bed mobility and standby assistance in sit to stand, stand to sit, bed to chair, chair to bed, showing still only fair plus dynamic standing balance but good standing balance and ambulating greater than 170 feet and able to do seven steps with standby assistance and verbal queuing. Similarly, in occupational therapy, the patient maximum total assist in initial transfer training, showing standing static and dynamic balance at 4+ and moderate to maximum assist in functional transfers with two people. However, endurance has increased in skills as noted in physical therapy with modified independence to standby assist and mobility transfers, grooming, toileting, and good balances except for standing dynamic which remains fair plus. The patient is challenged by problems with short-term memory and organization and planning which is why he will need ongoing speech therapy and should be able to become more independent and not require the front-wheeled walker as he continues to heal with ongoing physical and occupational therapy. Due to the blood urea nitrogen (BUN) problems and ongoing need for anticoagulation having been switched to Xarelto, a new medication, home care nursing will need to do some monitoring of complete blood counts (CBCs), comprehensive metabolic panels, and watch for continued improvement in total bilirubin to normalized and hopefully nutrition to improve and clear the hypoalbuminemia. DISCHARGE MEDICATIONS: - Xarelto 10 mg daily - aspirin 81 mg daily - atorvastatin 40 mg at bedtime - CoQ10 100 mg twice a day - glucosamine chondroitin sulfate one tablet daily - irbesartan 150 mg daily - Ocuvite one daily - nitroglycerine 0.4 mg sublingually every five minutes as needed for chest pain - pantoprazole 40 mg daily for gastroesophageal reflux disease (GERD) - sertraline 50 mg daily for mood - tamsulosin hydrochloride 0.4 mg nightly for blood pressure and urinary retention The patient is fall hip precaution. He is to see his primary care provider, Dr. Rosales, within two weeks and to see Dr. Grullon within two weeks. The patient is to have home care, physical therapy (PT), occupational therapy (OT), speech therapy along with nursing as described above. COMPLICATIONS: The patient initially thought to have some delirium that was improving rapidly as he continued to get farther away from the anesthesia and use of opiate pain medication. However, it is clear that the patient has underlying disease, and per report from the son, this has been a progressive problem over the last half of a year or more and will require further evaluation by the patient's primary care provider, Dr. Rosales, who may wish to consider the use medicines such as Namenda or Aricept to assist this gentleman. DISCHARGE PLANS AND INSTRUCTIONS: The patient is discharged to home with family. His daughter will be staying with him for the next two weeks. Home care therapy as noted above with physical therapy (PT), occupational therapy (OT), speech, language pathology and home care nursing. The patient to have twice a week complete blood count (CBC) and comprehensive metabolic panels. Time spent on this discharge is greater than 35 minutes. [facility]
== END 2016-10-27 17:00 | disposition home health service (06) | DRG 560 ==
LOC: M PM&R 13:55
PROVIDERS: ADMIT Physical Medicine & Rehabilitation; ATTEND Physical Medicine & Rehabilitation
DX: S72.042D Displaced fracture of base of neck of left femur, subsequent encounter for closed fracture with routine healing (principal); J98.11 Atelectasis; B37.0 Candidal stomatitis; W18.09XD Striking against other object with subsequent fall, subsequent encounter; Y92.481 Parking lot as the place of occurrence of the external cause; Y99.8 Other external cause status; I25.10 Atherosclerotic heart disease of native coronary artery without angina pectoris; I10 Essential (primary) hypertension; E78.5 Hyperlipidemia, unspecified; K21.9 Gastro-esophageal reflux disease without esophagitis; E88.09 Other disorders of plasma-protein metabolism, not elsewhere classified; F41.9 Anxiety disorder, unspecified; F32.9 Major depressive disorder, single episode, unspecified; Z95.5 Presence of coronary angioplasty implant and graft; Z88.6 Allergy status to analgesic agent; Z88.8 Allergy status to other drugs, medicaments and biological substances; Z79.891 Long term (current) use of opiate analgesic; Z79.899 Other long term (current) drug therapy; Z87.891 Personal history of nicotine dependence; E66.9 Obesity, unspecified; F09 Unspecified mental disorder due to known physiological condition; D64.9 Anemia, unspecified; R33.9 Retention of urine, unspecified; Z96.642 Presence of left artificial hip joint; Z68.30 Body mass index [BMI] 30.0-30.9, adult